=== PATIENT | female | born 1945 | race Caucasian/White ===

== ENCOUNTER → 2016-10-23 | Outpatient (CLI) | payer MEDICARE ==
--- NOTE | 2016-10-24 10:00 | MM ---
Reason for exam: screening (asymptomatic). Last mammogram was performed 2 years and 3 months ago. History: Patient is postmenopausal. Physical Findings: A clinical breast exam by your physician is recommended on an annual basis and results should be correlated with mammographic findings. MG 3D Screening Mammo W/Cad Bilateral CC and MLO view(s) were taken. Prior study comparison: July 14, 2014, right breast MG work up mamm w CAD RT. July 10, 2014, bilateral MG screening mammo w CAD. There are scattered fibroglandular densities. No significant changes when compared with prior studies. ASSESSMENT: Negative, BI-RAD 1 RECOMMENDATION: Routine screening mammogram of both breasts in 1 year.
== END | disposition home or self-care (01) ==
LOC: RADMAMWWP 10:13
PROVIDERS: ATTEND Family Medicine
DX: Z12.31 Encounter for screening mammogram for malignant neoplasm of breast (principal)
CPT/HCPCS: 77052; 77063; G0202

== ENCOUNTER → 2017-11-06 | Outpatient (CLI) | payer MEDICARE ==
--- NOTE | 2017-11-06 08:56 | US ---
EXAMINATION TYPE: US abdomen complete DATE OF EXAM: 11/06/2017 COMPARISON: NONE CLINICAL HISTORY: R10.13 DYSPEPSIA. Patient states she has pain after eating EXAM MEASUREMENTS: Liver Length: 14.9 cm Gallbladder Wall: 0.2 cm CBD: 1.0 cm Spleen: 8.0 cm Right Kidney: 10.5 x 4.1 x 4.3 cm Left Kidney: 10.9 x 4.8 x 4.8 cm Pancreas: Tail obscured by overlying bowel gas, visualized portions wnl Liver: wnl Gallbladder: Mobile echogenic foci visualized Evidence for sonographic Tao's sign: No CBD: Dilated. Spleen: wnl Right Kidney: No hydronephrosis or masses seen Left Kidney: No hydronephrosis or masses seen Upper IVC: wnl Abd Aorta: Some atherosclerotic changes visualized The liver is homogenous. The intrahepatic portion of the IVC is within normal limits. The visualize d portions of the pancreas are homogenous. The spleen is unremarkable. Kidneys are symmetric and fr ee of hydronephrosis. No renal lesions are seen. IMPRESSION: 1. Cholelithiasis with common bile duct dilatation. No wall thickening or pericholecystic fluid.
== END | disposition home or self-care (01) ==
LOC: RADUSWWP 08:13
PROVIDERS: ATTEND Internal Medicine
DX: K80.20 Calculus of gallbladder without cholecystitis without obstruction (principal); K83.8 Other specified diseases of biliary tract; R10.13 Epigastric pain
CPT/HCPCS: 76700

== ENCOUNTER → 2017-12-26 | Outpatient (CLI) | payer MEDICARE ==
[2017-12-26 12:04] LABS: HGB 14.8 gm/dL (11.4-16.0); MCH 30.1 pg (25.0-35.0); MCV 91.3 fL (80.0-100.0); Mean Platelet Volume 7.1; Platelet Count 344 k/uL (150-450); RBC 4.93 m/uL (3.80-5.40); RDW 12.2 % (11.5-15.5)
[2017-12-26 12:06] LABS: ALT 29 U/L (9-52); AST 23 U/L (14-36); Albumin 4.3 g/dL (3.5-5.0); Alkaline Phosphatase 70 U/L (38-126); Amylase 59 U/L (30-110); Anion Gap 9 mmol/L; Blood Urea Nitrogen 16 mg/dL (7-17); Calcium 10.3 mg/dL (8.4-10.2); Carbon Dioxide 29 mmol/L (22-30); Chloride 103 mmol/L (98-107); Glucose 99 mg/dL (74-99); Potassium 5.4 mmol/L (3.5-5.1); Sodium 141 mmol/L (137-145); Total Bilirubin 0.4 mg/dL (0.2-1.3); Total Protein 7.9 g/dL (6.3-8.2)
--- NOTE | 2017-12-26 16:21 | CT ---
EXAMINATION TYPE: CT abdomen w con DATE OF EXAM: 12/26/2017 COMPARISON: NONE INDICATION: Abdominal pain, Dilated common bile duct DLP: 782 mGycm, Automated exposure control for dose reduction was used. CONTRAST: 100 ml mL of Omnipaque 300. Study performed with Oral Contrast TECHNIQUE: Axial images were obtained from above the diaphragm to the pubic rami in the axial plane a t 5 mm thick sections. Reconstructed images are reviewed on the computer in the coronal plane. FINDINGS: Limited CT sections are obtained the lung bases. There is a tiny pleural thickening on the initial i mage posterior right lung measuring 0.4 cm. Series [address] ABDOMEN: Liver: Normal. No biliary dilatation is evident. The common bile duct at the level of the head of the pancreas measures 0.8 cm on this examination which is within normal limits. Spleen: Normal Pancreas: Normal. No head of the pancreas mass is evident. There is prominence of the pancreatic duct within head of the pancreas measuring 0.4 cm. Normal less than 0.3 cm. Pancreatic duct the body and tail of pancreas is within normal limits. Consider ERCP for additional evaluation. Adrenal glands: Left adrenal gland has some thickening of the limbs estimated at approximately 0.8 cm each. The right adrenal gland appears normal. Gallbladder: Normal Kidneys: No masses are evident. There is mild prominence of the extra renal pelvis bilaterally. No cy sts are present. Delayed images were obtained through the kidneys, which remain unremarkable. Aorta: Vascular calcification is within the aorta. Inferior vena cava: Normal. Loops of bowel visualized within the abdomen with contrast appear normal. There are some loops of bow el lacking oral contrast limiting their evaluation. IMPRESSIONS: 1. Pancreatic duct is somewhat prominent at 0.4 cm within the head of the pancreas. Body and tail of pancreas is poorly pancreatic duct is normal. 2. Common bile duct at the head of the pancreas appears within normal limits and is not as dilated as on the previous examination. No intrahepatic biliary dilatation is evident.
== END | disposition home or self-care (01) ==
LOC: RADCTMAIN 11:15
PROVIDERS: ATTEND Surgery
DX: R10.11 Right upper quadrant pain (principal); K83.8 Other specified diseases of biliary tract
CPT/HCPCS: 80053; 82150; 85027; 74160; 36415; Q9967

== ENCOUNTER 2018-04-10 06:55 | Day surgery (SDC) | payer MEDICARE ==
[2018-04-05 09:10] VITALS: BMI 23.1
[2018-04-10] MEDS ORDERED: LIDOCAINE 1% INJ 10MG/ML (20 ML MDV) ONE (10:13)
[2018-04-10] MEDS ORDERED: PROPOFOL 10 MG/ML 20 ML VIAL IV ONE (10:13)
[2018-04-10] MEDS ORDERED: LACTATED RINGERS 1,000 ML IV ONE (10:37)
[2018-04-10 10:41] VITALS: RESP 18
[2018-04-10 10:59] VITALS: BP 103/65; PULSE 69
[2018-04-10] MEDS ORDERED: LACTATED RINGERS 1,000 ML IV SCH (11:13)
--- NOTE | 2018-04-10 14:15 | PCN ---
PROCEDURE NOTE DATE OF SERVICE: April 10, 2018 PREOPERATIVE DIAGNOSIS: Screening. POSTOP DIAGNOSIS: Normal exam. PROCEDURE: Colonoscopy. ANESTHESIA: Sedation. SURGEON: Dr. Amaral. COMPLICATIONS: None. OPERATIVE PROCEDURE: The patient was brought and placed on the operative table and place in the left decubitus position. The patient is sedated per Anesthesia at that time. The Olympus colonoscope was inserted into the anus and passed under direct visualization to the region of the base of the cecum. From that point the scope was slowly withdrawn, inspecting all surfaces carefully. There were no neoplastic, inflammatory or palpable lesions seen throughout the cecum, ascending, transverse, descending, sigmoid, and rectum. There was no visible diverticulosis present. Digital rectal examination was normal. PLAN: 1. Increase fiber. 2. Follow up colonoscopy in 10 years. MMODL / IJN: [id number] /
== END 2018-04-10 11:28 | disposition home or self-care (01) ==
LOC: ORWHC2ENDO 06:55
PROVIDERS: ATTEND Surgery
DX: Z12.11 Encounter for screening for malignant neoplasm of colon (principal); I10 Essential (primary) hypertension; I83.90 Asymptomatic varicose veins of unspecified lower extremity; Z79.82 Long term (current) use of aspirin; Z79.899 Other long term (current) drug therapy
CPT/HCPCS: J2001; J2704; G0121; 45378

== ENCOUNTER → 2019-05-29 | Outpatient (CLI) | payer MEDICARE ==
--- NOTE | 2019-05-30 10:00 | MM ---
Reason for exam: screening (asymptomatic). Last mammogram was performed 2 years and 7 months ago. History: Patient is postmenopausal. Physical Findings: A clinical breast exam by your physician is recommended on an annual basis and results should be correlated with mammographic findings. MG 3D Screening Mammo W/Cad Bilateral CC and MLO view(s) were taken. Prior study comparison: October 23, 2016, bilateral MG 3d screening mammo w/cad. July 14, 2014, right breast MG work up mamm w CAD RT. There are scattered fibroglandular densities. No suspicious abnormality. No significant changes when compared with prior studies. ASSESSMENT: Negative, BI-RAD 1 RECOMMENDATION: Routine screening mammogram of both breasts in 1 year.
== END | disposition home or self-care (01) ==
LOC: RADMAMWWP 13:18
PROVIDERS: ATTEND Internal Medicine
DX: Z12.31 Encounter for screening mammogram for malignant neoplasm of breast (principal)
CPT/HCPCS: 77063; 77067

== ENCOUNTER → 2021-06-30 | Outpatient (CLI) | payer MEDICARE ==
--- NOTE | 2021-07-01 11:37 | MM ---
Reason for exam: screening (asymptomatic). Last mammogram was performed 2 years and 1 month ago. History: Patient is postmenopausal. Physical Findings: A clinical breast exam by your physician is recommended on an annual basis and results should be correlated with mammographic findings. MG 3D Screening Mammo W/Cad Bilateral CC and MLO view(s) were taken. Prior study comparison: May 29, 2019, bilateral MG 3d screening mammo w/cad. October 23, 2016, bilateral MG 3d screening mammo w/cad. There are scattered fibroglandular densities. Benign appearing bilateral calcifications. No significant changes when compared with prior studies. ASSESSMENT: Benign, BI-RAD 2 RECOMMENDATION: Routine screening mammogram of both breasts in 1 year.
== END | disposition home or self-care (01) ==
LOC: RADMAMWWP 08:39
PROVIDERS: ATTEND Internal Medicine
DX: Z12.31 Encounter for screening mammogram for malignant neoplasm of breast (principal); Z78.0 Asymptomatic menopausal state
CPT/HCPCS: 77063; 77067

== ENCOUNTER → 2023-05-31 | Outpatient (CLI) | payer MEDICARE ==
--- NOTE | 2023-06-01 10:12 | BD ---
EXAMINATION TYPE: Axial Bone Density DATE OF EXAM: 05/31/2023 CLINICAL HISTORY: 77 years old Female. ICD-10 CODE: M85.851 DISORDER BONE DENSITY Height: 63 Weight: 124 FRAX RISK QUESTIONS: Family History (Parent hip fracture): yes, mother at 89 History of Fracture in Adulthood: no Secondary Osteoporosis: no Rheumatoid Arthritis: no RISK FACTORS HISTORY OF: Family History of Osteoporosis: no Active: yes Diet low in dairy products/other sources of calcium: no Postmenopausal woman: yes Lost more than 2 inches in height since high school: yes ,was 66 Frequent falls: no Poor Health: no MEDICATIONS: Additional Medications: yes diabetic meds, hbp meds, vit d , calcium EXAM MEASUREMENTS: Bone mineral densitometry was performed using the Velti System. Bone mineral density as measured about the Lumbar spine is: ----- L1-L4(G/cm2): 0.925 T Score Values are as follows: ----- L1: -2.8 ----- L2: -2.7 ----- L3: -1.5 ----- L4: -1.6 ----- L1-L4: -2.1 Z Score Values are as follows: ----- L1: -0.8 ----- L2: -0.6 ----- L3: 0.5 ----- L4: 0.4 ----- L1-L4: -0.1 Bone mineral density baseline Bone mineral density about the R hip (g/cm2): 0.694 Bone mineral density about the L hip (g/cm2): 0.713 T Score values are as follows: -----R Neck: -2.4 -----L Neck: -2.4 -----R Total: -2.5 -----L Total: -2.3 Z Score values are as follows: -----R Neck: -0.2 -----L Neck: -0.2 -----R Total: -0.5 -----L Total: -0.3 Bone mineral density baseline FRAX%s: The graph provided illustrates a 16% chance for a major osteoporotic fx and a 5.3% chance for the hips probability for fx in 10 years time. IMPRESSION: Osteopenia (T Score between -2.5 and -1). There is slightly increased risk of fracture and the patient may be considered for treatment. Re-Screen 2-5 years. NOTE: T-SCORE=SD OF THE YOUNG ADULT MEAN.
--- NOTE | 2023-06-01 11:01 | MM ---
Reason for Exam: Screening (asymptomatic). Last mammogram was performed 1 year(s) and 11 month(s) ago. Patient History: Menarche at age 17. First Full-Term at age 24. Postmenopausal. Hormonal Contraceptives for 6 months. Risk Values: Geraldine 5 year model risk: 1.4%. NCI Lifetime model risk: 2.9%. Prior Study Comparison: 10/23/2016 Bilateral Screening Mammogram, [facility]. 05/29/2019 Bilateral Screening Mammogram, [facility]. 06/30/2021 Bilateral Screening Mammogram, [facility]. Tissue Density: There are scattered fibroglandular densities. Findings: Analyzed By CAD. Pattern appears symmetrical and stable. No significant interval changes. No suspicious groups of microcalcifications, spiculated or lobular masses, architectural distortion or other secondary signs of malignancy are mammographically apparent. Overall Assessment: Benign, BI-RAD 2 Management: Screening Mammogram of both breasts in 1 year. A negative mammogram report should not preclude additional follow up of suspicious palpable abnormalities. Patient should continue monthly self breast exam. A clinical breast exam by your physician is recommended on an annual basis and results should be correlated with mammographic findings. Electronically signed and approved by: Jung Garza D.O. Radiologis
== END | disposition home or self-care (01) ==
LOC: RADMAMWWP 14:33
PROVIDERS: ATTEND Internal Medicine
DX: Z12.31 Encounter for screening mammogram for malignant neoplasm of breast (principal); M81.0 Age-related osteoporosis without current pathological fracture; M85.89 Other specified disorders of bone density and structure, multiple sites; Z78.0 Asymptomatic menopausal state
CPT/HCPCS: 77063; 77067; 77080

== ENCOUNTER → 2023-09-04 | Outpatient (CLI) | payer MEDICARE ==
[2023-09-04 11:31] LABS: Partial Thromboplastin Time 25.6 sec (22.0-30.0); Prothrombin Time 10.8 sec (10.0-12.5)
[2023-09-04 18:13] LABS: Basophils # (A) 0.04 X 10*3/uL (0.00-0.10); Basophils % (A) 0.7 %; Eosinophils # (A) 0.04 X 10*3/uL (0.04-0.35); Eosinophils % (A) 0.7 %; HCT 43.6 % (37.2-46.3); HGB 13.9 g/dL (12.0-15.0); Lymphocytes # (A) 1.06 X 10*3/uL (0.90-5.00); Lymphocytes % (A) 19.8 %; MCH 30.5 pg (27.0-32.0); MCHC 31.9 g/dL (32.0-37.0); MCV 95.8 FL (80.0-97.0); Mean Platelet Volume 11.2 FL (9.5-12.2); Monocytes # (A) 0.36 X 10*3/uL (0.20-1.00); Monocytes % (A) 6.7 %; NRBC Per 100 WBC 0 X 10*3/uL (0.00-0.01); Neutrophils # (A) 3.83 X 10*3/uL (1.80-7.70); Neutrophils % (A) 71.7 %; Platelet Count 264 X 10*3/uL (140-440); RBC 4.55 X 10*6/uL (4.10-5.20); RDW 12.7 % (11.5-14.5); WBC 5.35 X 10*3/uL (4.50-10.00)
[2023-09-04 18:24] LABS: Appearance,Urine Clear (Clear); Bilirubin,Urine Negative (Negative); Blood,Urine Negative (Negative); Color,Urine Yellow (Yellow); Ketones,Urine Negative (Negative); Nitrite,Urine Negative (Negative); PH, Urine 6.5; Specific Gravity,Urine 1.014 (1.001-1.030); Urobilinogen,Urine 0.2 E.U./DL
[2023-09-04 18:28] LABS: Bacteria,Urine None Seen (None Seen)
[2023-09-04 21:05] LABS: Blood Urea Nitrogen 16.4 mg/dL (9.0-27.0); Carbon Dioxide 23.9 mmol/L (21.6-31.8); Chloride 101 mmol/L (96-109); Glucose 94 mg/dL (70-110); Potassium 4.8 mmol/L (3.5-5.5); Sodium 136 mmol/L (135-145)
== END | disposition home or self-care (01) ==
LOC: LABPAT 09:55
PROVIDERS: ATTEND Thoracic Surgery (Cardiothoracic Vascular Surgery)
DX: Z01.812 Encounter for preprocedural laboratory examination (principal); C34.2 Malignant neoplasm of middle lobe, bronchus or lung; E86.0 Dehydration; Z79.899 Other long term (current) drug therapy; R58 Hemorrhage, not elsewhere classified; R06.00 Dyspnea, unspecified
CPT/HCPCS: 80051; 81001; 82565; 82947; 84520; 85025; 85610; 85730; 86850; 86900; 86901; 87086; 93005

== ENCOUNTER 2023-09-13 05:35 | Inpatient (IN) | payer MEDICARE ==
[2023-09-10 09:57] VITALS: BMI 21.8
[2023-09-13] MEDS ORDERED: LACTATED RINGERS 1,000 ML IV SCH (06:01)
[2023-09-13] MEDS ORDERED: ONDANSETRON 4 MG/2 ML VIAL IVP ONE (06:01)
[2023-09-13] MEDS ORDERED: ONDANSETRON 4 MG/2 ML VIAL ONE (06:04)
[2023-09-13 06:33] LABS: Glucose,Whole Blood 93 mg/dL (70-110)
[2023-09-13] MEDS ORDERED: HYDROmorphone 0.5 MG/0.5 ML SYRINGE IVP PRN (07:00)
[2023-09-13] MEDS ORDERED: MIDAZOLAM 2 MG/2 ML VIAL IVP ONE ×2 (07:05→07:08)
[2023-09-13] MEDS ORDERED: DEXAMETHASONE SOD PHOSPHATE 4 MG/ML 1 ML VIAL IVP ONE (07:08)
[2023-09-13] MEDS ORDERED: fentaNYL (PF) 50 MCG/ML 2 ML AMP ONE (07:35)
[2023-09-13] MEDS ORDERED: diphenhydrAMINE 50 MG/ML 1 ML VIAL ONE (07:35)
[2023-09-13] MEDS ORDERED: LABETALOL 5 MG/ML VIAL MDV ONE (07:35)
[2023-09-13] MEDS ORDERED: ROCURONIUM 10 MG/ML (5 ML VIAL) IV ONE (07:35)
[2023-09-13] MEDS ORDERED: HYDROmorphone (PF) 1 MG/ML ONE (07:35)
[2023-09-13] MEDS ORDERED: SUCCINYLCHOLINE CHLORIDE 200 MG/10 ML VIAL IV ONE (07:35)
[2023-09-13] MEDS ORDERED: GLYCOPYRROLATE 0.2 MG/ML 2 ML VIAL ONE (07:35)
[2023-09-13] MEDS ORDERED: NEOSTIGMINE 1 MG/ML 10 ML VIAL ONE (07:35)
[2023-09-13] MEDS ORDERED: LIDOCAINE 1% INJ 10MG/ML (20 ML MDV) ONE (07:35)
[2023-09-13] MEDS ORDERED: ePHEDrine 50 MG/ML 1 ML VIAL ONE (07:35)
[2023-09-13] MEDS ORDERED: PROPOFOL 10 MG/ML 20 ML VIAL IV ONE (07:35)
[2023-09-13] MEDS ORDERED: KETOROLAC 15 MG/ML 1 ML VIAL ONE (07:35)
[2023-09-13] MEDS ORDERED: ROPIVACAINE 5 MG/ML 30 ML VIAL ONE (07:35)
[2023-09-13] MEDS ORDERED: SODIUM CHLORIDE 0.9% (PF) 10 ML VIAL ONE (07:35)
[2023-09-13] MEDS ORDERED: DEXAMETHASONE SOD PHOSPHATE 4 MG/ML 1 ML VIAL ONE (07:35)
[2023-09-13] MEDS ORDERED: BUPIVACAINE (PF) 0.5% 30 ML VIAL SQ ONE ×2 (08:07)
[2023-09-13] MEDS ORDERED: LACTATED RINGERS 1,000 ML IV ONE (10:49)
--- NOTE | 2023-09-13 12:16 | P.OP ---
Date of Procedure: 09/13/23 Preoperative Diagnosis: Well-differentiated neuroendocrine tumor right middle lobe Postoperative Diagnosis: Same Procedure(s) Performed: Robotic-assisted thoracoscopic right middle lobectomy with mediastinal lymph node sampling Anesthesia: ARLENE Surgeon: Rubio Youngblood [employer] Sticker #1: Jovani Masters Estimated Blood Loss (ml): 20 IV fluids (ml): 1,000 Urine output (ml): 500 Pathology: other (Right middle lobe with bronchial margin for frozen section; lymph node stations R4, level 7, R8, R9, R10, R 11, R12; new right middle lobe bronchus margin for frozen section) Condition: stable Disposition: PACU Indications for Procedure: 78-year-old woman with newly discovered mass in the right lung found to be a neuro endocrine well-differentiated tumor by bronchoscopic biopsy. PET scan showed mild uptake in the tumor with no evidence of uptake or metastasis elsewhere. Computed tomography scan showed no evidence of lymphadenopathy. EBUS showed no evidence of lymph node metastasis. Patient was seen in co nsultation in the office and elective surgery was scheduled. A minimally invasive approach was agreed upon. Operative Findings: Fissures were incomplete. Lymph nodes were generally small and anthracotic. Tumor was fairly proximal. Initial frozen section showed "tumor in the lumen "which was interpreted as being a positive margin. Description of Procedure: Patient was brought to the operating room, placed supine on the operating table, anesthetized and intubated. Double lumen endotracheal tube was placed and positioned with bronchoscopic guidance. Tube was secured and the patient was turned in the left lateral decubitus position and the right chest was sterilely prepped and draped after appropriate positioning for robotic lobectomy. Single lung ventilation was initiated. Initial port was placed in the eighth interspace in the midaxillary line and a thoracoscope was placed. After confirming placement in the pleural cavity, CO2 insufflation was begun. 212 mm ports were placed one anterior one posterior to the initial placed port. A second 8 mm port was placed posteriorly in the sixth interspace. A 15 mm working port was placed at the level of the diaphragm between the 2 anteriormost ports. Ports were connected to the robot. The chest was explored. There were some adhesions anteriorly of the middle lobe to the mediastinal fat and these were taken down with electrocautery. The greater fissure was about three quarters complete and further dissection was carried down until we reached lung tissue in order to maximize the dissection of the greater fissure. The lesser fissure was much less well-developed although we could see its demarcation. Only minimal dissection was performed here at this time. Inferior pulmonary ligament was taken down to the inferior pulmonary vein. R9 lymph node was resected. Dissection was carried posteriorly. R8 and subcarinal lymph nodes were resected. We then moved anteriorly and identified the middle lobe vein. This was encircled and ligated and divided with a robotic vascular stapler. Dissection was carried up onto the bronchus. Some R 11 lymph nodes were resected. Became evident that there was a second much smaller branch of the middle lobe vein draining separately and this was encircled and ligated and divided with a robotic vascular stapler. We're now able to better expose the bifurcation of the bronchus intermedius and encircle the middle lobe bronchus. Further R 11 lymph nodes were resected in this process. Middle lobe bronchus was divided with a robotic green stapler. We now had good visualization of the pulmonary artery. Dissection was carried further onto the pulmonary artery and the middle lobe branch of the pulmonary artery was identified and encircled. It was ligated and divided with a robotic vascular stapler. We now carefully dissected anterior to the pulmonary artery up into the fissure near the trifurcation between the greater and lesser fissures. Once we had accomplished this we were able to complete the greater fissure with a single firing of a blue robotic stapler. Multiple firings of the blue robotic stapler were used to complete the lesser fissure. The middle lobe was now 3 and placed in a Endo Catch bag and brought out onto the field. Presence of the tumor was noted near the hilum there was no gross evidence of tumor at or near the bronchus. Specimen was sent down for frozen section of the bronchial margin. In the interim we proceeded to resect R 10 and R4 lymph nodes. The chest was now irrigated with warm water and tested for air leak and none was apparent. The robot was undocked and a 28-Luxembourger chest tube was placed posterior apically and the lung reexpanded under thoracoscopic visualization. Chest tube was secured with 0 Ethibond suture. Rib blocks were performed at the level of the incisions posteriorly with half percent Marcaine. Incisions were closed with Vicryl suture. At this point the frozen section returned stating "tumor in the lumen." This was interpreted as being a positive margin. We reopened the incisions, replaced the ports, redocked the robot. We able to re-resect the stump of the middle lobe bronchus flush with the bronchus intermedius and sent this off for frozen section. We then again reirrigated replaced our chest tube reexpanded the lung and reclosed as previously. Frozen section returned negative at this time. Drapes were taken down and dressings were applied and the patient was turned supine and was in the process of being extubated when the pathologist called back and stated that he now is not sure there might be a 7 mm component of tumor still at or near the margin. As we had already stapled all the way to the bronchus intermedius we did not feel that this warranted opening the patient and doing a sleeve resection at this time. Patient was extubated and transferred to recovery in stable condition.
--- NOTE | 2023-09-13 13:11 | P.ANPRN ---
Procedure Note - Anesthesia - Nerve Block Performed Right Erector Spinae Single Time Out Performed: Yes (722) Date of Procedure: 09/13/23 Procedure Start Time: Procedure Stop Time: Location of Patient: PreOp Indication: Acute Post-Operative Pain, Requested by Surgeon Specifically requested for management of pain by DrCourt: Rubio Youngblood Sedation Type: Sedate with meaningful contact maintained Preparation: Sterile Prep Position: Sitting Catheter: None Needle Types: Pajunk Needle Gauge: 21 Ultrasound used to visualize needle placement: Yes Ultrasound used to observe medication spread: Yes Injectate: 0.5% Ropivacaine (see comment for volume) (30cc) Blood Aspirated: No Pain Paresthesia on Injection Noted: No Resistance on Injection: Normal Image Stored and Saved: Yes Events: Uneventful and Well Tolerated
[2023-09-13] MEDS ORDERED: METOCLOPRAMIDE 5 MG/ML 2 ML VIAL IVP PRN (13:22)
[2023-09-13] MEDS ORDERED: DEXTROSE 50% SYRINGE 50 ML IVP PRN ×2 (13:22)
[2023-09-13] MEDS ORDERED: ONDANSETRON 4 MG/2 ML VIAL IVP PRN (13:22)
[2023-09-13] MEDS ORDERED: SODIUM CHLORIDE 0.9% 1,000 ML IV SCH (13:22)
[2023-09-13] MEDS ORDERED: bisacodyL 10 MG SUPP RECTAL PRN (13:22)
[2023-09-13] MEDS ORDERED: IPRATROPIUM-ALBUTEROL 3 ML NEB IH PRN (13:22)
--- NOTE | 2023-09-13 13:24 | XR ---
EXAMINATION TYPE: XR chest 1V portable DATE OF EXAM: 09/13/2023 COMPARISON: 08/16/2000 and HISTORY: Post lobectomy TECHNIQUE: Single frontal view of the chest is obtained. FINDINGS: Postsurgical changes are seen with a right-sided chest tube and volume loss compatible wit h reported history of post lobectomy. Less than 5% right apical pneumothorax. Underlying COPD and chr onic interstitial lung disease. Bibasilar atelectasis favored over infiltrate with small left effusio n. Subcutaneous emphysema. Diffuse osteopenia with scoliosis of the spine and degenerative changes. A C joint arthropathy. Atherosclerotic change aorta. Heart size stable. IMPRESSION: 1. Postsurgical changes with less than 5% right apical pneumothorax. 2. Bibasilar atelectasis favored over pneumonia.
[2023-09-13] MEDS: IPRATROPIUM-ALBUTEROL 3 ML NEB IH SCH ×3 (15:25→20:39)
[2023-09-13] MEDS: INSULIN ASPART (NovoLOG) 100 UNIT/ML VIAL SQ SCH ×3 (15:59→21:13)
--- NOTE | 2023-09-13 15:59 | P.CNPUL ---
History of Present Illness Consult date: 09/13/23 Requesting physician: Rubio Youngblood Reason for consult: lung mass, abnormal CXR/CT Chief complaint: Lung mass. History of present illness: Pulmonary consult dated 09/13/2023. 78-year-old female who underwent a robotically assisted thoracoscopic right middle lobectomy with mediastinal lymph node sampling. The patient was recently seen by my partner, and had a lung biopsy, revealing a neuroendocrine tumor involving the right middle lobe. The patient was sent to Dr. Youngblood for further evaluation, and the patient underwent a right middle lobectomy, and had sampling of various lymph node stations including 4R, station 7, 8R, 9R, 10R, 11R, and 12R. The patient is postop day #0. She is resting comfortably in room 361. The patient is on 2 L of oxygen. She is receiving lactated Ringer's at 50 mL an hour. She has a right-sided chest tube, with a leak. The only current laboratory data is a glucose of 93. Chest x-ray shows a small 5% right apical pneumothorax. Review of Systems REVIEW OF SYSTEMS: CONSTITUTIONAL: [Negative.] NEUROLOGIC: [ Negative.] HEENT: [ Negative.] CARDIAC: [Negative.] PULMONARY: Pain at the surgical site. GI: [Negative.] : [Negative.] RHEUMATOLOGIC: [ Negative.] IMMUNOLOGIC: [ Negative.] ENDOCRINE: [Negative. ] DERMATOLOGIC: [Negative.] Past Medical History Past Medical History: Diabetes Mellitus, Deep Vein Thrombosis (DVT), Hearing Disorder / Deafness, Hypertension Additional Past Medical History / Comment(s): Borderline Diabetes, Hx DVT postp artum, varicose veins, Meniere's History of Any Multi-Drug Resistant Organisms: None Reported Past Surgical History: Tubal Ligation Additional Past Surgical History / Comment(s): Bilateral cataract surgery Past Anesthesia/Blood Transfusion Reactions: Motion Sickness, Postoperative Nausea & Vomiting (PONV) Additional Past Anesthesia/Blood Transfusion Reaction / Comment(s): Got nausea before cataract surgery was even started, states needs to be pre-medicated for nausea. Past Psychological History: No Psychological Hx Reported Smoking Status: Never smoker Past Alcohol Use History: Rare Past Drug Use History: None Reported - Past Family History Father Family Medical History: Cancer Additional Family Medical History / Comment(s): PROSTATE CANCER. Mother Family Medical History: Deep Vein Thrombosis (DVT) Additional Family Medical History / Comment(s): Triple Bypass. Medications and Allergies Home Medications Medication Instructions Recorded Confirmed Type Ascorbic Acid [Vitamin C] 1,000 mg PO DAILY 04/05/18 09/13/23 History Aspirin [Adult Low Dose Aspirin EC] 81 mg PO DAILY 04/05/18 09/13/23 History Multivit with Calcium,Iron,Min 1 each PO DAILY 04/05/18 09/13/23 History [Women's Multivitamin] Perindopril Erbumine [Aceon] 4 mg PO HS 04/05/18 09/13/23 History Rosuvastatin [Crestor] 10 mg PO W/SUPPER 08/14/23 09/13/23 History metFORMIN HCL [Glucophage] 500 mg PO W/SUPPER 08/14/23 09/13/23 History Cholecalciferol [Vitamin D3 (25 25 mcg PO DAILY 09/10/23 09/13/23 History Mcg = 1000 Iu)] Cinnamon Bark [Cinnamon] 500 mg PO DAILY 09/10/23 09/13/23 History Allergies Allergy/AdvReac Type Severity Reaction Status Date / Time sulfamethoxazole Allergy Severe Rash/Hives Verified 09/13/23 06:12 [From Bactrim] trimethoprim [From Bactrim] Allergy Severe Rash/Hives Verified 09/13/23 06:12 bee venom protein (honey bee) Allergy Swelling Verified 09/13/23 06:12 adhesive AdvReac Unknown BANDAIDES Verified 09/13/23 06:12 IRRITATE SKIN Physical Exam Osteopathic Statement: *. No significant issues noted on an osteopathic structural exam other than those noted in the History and Physical/Consult. Vitals: Vital Signs Temp Pulse Pulse Resp BP BP Pulse Ox 09/13/23 14:16 79 16 151/72 97 09/13/23 14:00 69 16 155/73 97 09/13/23 13:45 67 16 152/72 97 09/13/23 13:30 67 16 151/71 97 09/13/23 13:15 71 16 167/76 153/72 97 09/13/23 13:00 76 14 174/75 165/74 95 09/13/23 12:45 76 14 180/76 166/82 95 09/13/23 12:30 77 14 162/56 149/72 95 09/13/23 12:25 97 F L 70 14 165/76 95 09/13/23 07:28 74 16 188/73 96 09/13/23 06:38 97.5 F L 68 16 184/79 100 Intake and Output 09/13/23 09/13/23 09/13/23 06:59 14:59 22:59 Intake Total 2250 Output Total 630 Balance 1620 Intake: IV 2250 Output: Urine 600 Estimated Blood Loss 30 Other: Weight 57 kg No acute distress, oriented 3. Currently on 2 L by nasal cannula. HEENT examination is grossly unremarkable. Mucous membranes are moist. No oral lesions. Neck supple. Full range of motion. No adenopathy thyromegaly or neck vein distention. Cardiovascular examination reveals regular rhythm rate. S1-S2 normal. No S3 or S4. No discernible murmur noted. Heart rate 79 bpm. Lungs reveal diminished bilateral breath sounds. The patient does not take a deep breath. Minimal scattered rhonchi. No wheezes or crackles. Right-sided chest tube is noted. Abdomen soft bowel sounds are heard. No masses or tenderness. Extremities are intact. No cyanosis clubbing or edema. Skin is without rash or lesion. Neurologic examination is brief but nonfocal. Results - Diagnostic Findings Chest x-ray: image reviewed Assessment and Plan Assessment: Postop day #0, status post robotically-assisted right middle lobectomy and mediastinal lymph node dissection. The patient has a prior diagnosis by robotic bronchoscopy, of well-differentiated neuroendocrine tumor. EBUS evaluation was negative. History of diabetes mellitus. History of hyperlipidemia. History of hypertension. Plan: Plan dated 09/13/2023. The patient is seen today in room 361. She's currently on 2 L of oxygen. She's getting lactated Ringer's at 50 mL an hour. She has pain with deep breathing. She does have an incentive spirometer at her bedside. There is an intermittently from the right-sided chest tube. Chest x-ray shows a very tiny right apical pneumothorax. We will continue to follow the patient, make recommendations along the way. Prognosis is guarded. Time with Patient: Greater than 30
[2023-09-13] MEDS: HEPARIN SODIUM,PORCINE 5,000 UNIT/ML 1 ML VIAL SQ SCH ×2 (16:05→23:34)
[2023-09-13] MEDS: traMADol 50 MG TAB PO PRN ×2 (16:06→23:34)
[2023-09-13] MEDS: ATORVASTATIN 20 MG TAB PO SCH (16:06)
[2023-09-13] MEDS: metFORMIN 500 MG TAB PO SCH (16:43)
[2023-09-13 16:47] LABS: Glucose,Whole Blood 126 mg/dL (70-110)
[2023-09-13] MEDS: SENNOSIDES-DOCUSATE SODIUM 1 EACH TAB PO SCH (19:59)
[2023-09-13] MEDS: lisinopriL 10 MG TAB PO SCH (19:59)
[2023-09-13] MEDS: ACETAMINOPHEN TAB 325 MG TAB PO PRN (20:22)
[2023-09-13 21:08] LABS: Glucose,Whole Blood 165 mg/dL (70-110)
[2023-09-14] MEDS: ACETAMINOPHEN TAB 325 MG TAB PO PRN ×2 (02:57→18:53)
[2023-09-14] MEDS ORDERED: MORPHINE SULFATE 2 MG/ML SYRINGE IVP STA (04:01)
[2023-09-14 06:05] LABS: Glucose,Whole Blood 117 mg/dL (70-110)
[2023-09-14] MEDS: INSULIN ASPART (NovoLOG) 100 UNIT/ML VIAL SQ SCH ×4 (06:10→20:50)
[2023-09-14] MEDS ORDERED: KETOROLAC 15 MG/ML 1 ML VIAL IVP SCH (07:15)
[2023-09-14] MEDS: IPRATROPIUM-ALBUTEROL 3 ML NEB IH SCH ×4 (07:59→20:20)
--- NOTE | 2023-09-14 08:25 | XR ---
EXAMINATION TYPE: XR chest 1V DATE OF EXAM: 09/14/2023 6:53 AM CLINICAL INDICATION:Female, 78 years old with history of post lobectomy; [facility] COMPARISON: Chest radiograph from one day prior. TECHNIQUE: XR chest 1V Frontal view of the chest. FINDINGS: Lungs/Pleura: There is no evidence of pleural effusion, focal consolidation, or left pneumothorax. Pulmonary vascularity: Unremarkable. Heart/mediastinum: Cardiomediastinal silhouette is unremarkable. Musculoskeletal: No acute osseous pathology. Other findings: None Lines/Tubes: Right thoracotomy tube is present with small right pneumothorax. IMPRESSION: Right thoracotomy tube with small right pneumothorax. Right basilar atelectasis. The remainder of the exam is unchanged.
[2023-09-14] MEDS ORDERED: NON FORMULARY DRUG (Cinnamon Bark [Cinnamon] 500 MG Capsule) PO SCH (09:00)
[2023-09-14] MEDS: HEPARIN SODIUM,PORCINE 5,000 UNIT/ML 1 ML VIAL SQ SCH ×3 (09:07→23:41)
[2023-09-14] MEDS: ASCORBIC ACID 500 MG TAB PO SCH (09:07)
[2023-09-14] MEDS: ASPIRIN 81 MG PO SCH (09:07)
[2023-09-14] MEDS: CHOLECALCIFEROL 25 MCG (1000 IU) TABLET PO SCH (09:07)
[2023-09-14] MEDS: MULTIVITAMINS, THERA 1 EACH TAB PO SCH (09:07)
[2023-09-14 10:29] LABS: Basophils % (A) 0 %; Eosinophils % (A) 0 %; HCT 35.1 % (34.0-46.0); HGB 11.5 gm/dL (11.4-16.0); Lymphocytes # (A) 0.8 k/uL (1.0-4.8); Lymphocytes % (A) 9 %; MCH 31.6 pg (25.0-35.0); MCHC 32.9 g/dL (31.0-37.0); MCV 96.2 fL (80.0-100.0); Mean Platelet Volume 8.3; Monocytes # (A) 0.4 k/uL (0-1.0); Monocytes % (A) 5 %; Neutrophils # (A) 7.2 k/uL (1.3-7.7); Neutrophils % (A) 85 %; Platelet Count 214 k/uL (150-450); RBC 3.65 m/uL (3.80-5.40); RDW 12.3 % (11.5-15.5); WBC 8.5 k/uL (3.8-10.6)
[2023-09-14 10:44] LABS: African American GFR (CKD) 86 (>60 ml/min/1.73 sqM); Anion Gap 10 mmol/L; Blood Urea Nitrogen 16 mg/dL (7-17); Carbon Dioxide 24 mmol/L (22-30); Chloride 96 mmol/L (98-107); Glucose 126 mg/dL (74-99); Non-African American GFR(CKD) 75 (>60 ml/min/1.73 sqM); Potassium 4.4 mmol/L (3.5-5.1); Sodium 130 mmol/L (137-145)
--- NOTE | 2023-09-14 11:49 | P.PN ---
Subjective Progress Note Date: 09/14/23 Principal diagnosis: Well-differentiated neuroendocrine tumor right middle lobe. History of hypertension, hyperlipidemia, diabetes, remote history of DVT not currently on anticoagulation, varicose veins, Mnire's disease, and lifelong nonsmoker POD #1 robotic assisted thoracoscopic right middle lobectomy with mediastinal lymph node sampling The patient was seen and examined this morning ambulating in her room in no acute distress. States pain is not completely controlled on current medication regimen, denies shortness of breath. Remains in sinus rhythm, hemodynamically stable, currently on room air with oxygen saturation in the mid 90s. Only able to achieve 500 mL on her incentive spirometry due to pain with deep breaths. Right pleural chest tube present to continuous wall suction, small intermittent air leak present with forceful coughing. Chest x-ray, labs reviewed. No new concerns. Objective - Vital Signs Vital signs: Vital Signs Temp 97.2 F L 09/14/23 08:30 Pulse 74 09/14/23 10:48 Resp 16 09/14/23 08:30 BP 105/54 09/14/23 08:30 Pulse Ox 96 09/14/23 08:30 FiO2 Intake & Output 09/13/23 09/14/23 09/14/23 18:59 06:59 18:59 Intake Total 2350 0 120 Output Total 730 135 625 Balance 1620 -135 -505 Weight 65 kg Intake: IV 2250 Intake, IV Titration 100 Amount ceFAZolin 2 gm In Sodium 100 Chloride 0.9% 50 ml @ 100 mls/hr IVPB Q8H [facility] Rx#: [id number] Oral 0 120 Output: Chest Tube Drainage 50 135 Chest Tube Right 50 135 Urine 600 625 Estimated Blood Loss 30 Other 50 Other: Voiding Method Indwelling Catheter Indwelling Catheter Indwelling Catheter # Voids 1 - Exam CONSTITUTIONAL: Appears comfortable, cooperative, no acute distress RESPIRATORY: Lungs sounds clear bilaterally. Respirations even, nonlabored. Currently on room air with oxygen saturation 96%. Able to achieve 500 mL on incentive spirometry. Strong cough. CARDIOVASCULAR: S1, S2 present. Regular rate and rhythm, sinus rhythm on telemetry. Palpable peripheral pulses bilaterally. No edema present. No calf pain or tenderness noted. SCDs present. GASTROINTESTINAL: Abdomen soft, nontender, nondistended. Active bowel sounds present 4 quadrants. Tolerating diet. Positive flatus GENITOURINARY: Alberto was present this morning draining clear, yellow urine INTEGUMENTARY: Skin is warm and dry NEUROLOGIC: Cranial nerves II through XII intact MUSKULOSKELETAL: Able to move all extremities, strength equal bilaterally, gait normal PSYCHIATRIC: Alert and oriented to person place and time, appropriate affect, intact judgment and insight INVASIVE LINES AND TUBES: Right pleural chest tube present and connected to wall suction, intermittent air leak present with forceful coughing, 135 mL serosanguineous drainage overnight, 300 mL since surgery - Allied health notes Allied health notes reviewed: nursing - Labs CBC & Chem 7: 09/14/23 08:56 09/14/23 08:56 Labs: Abnormal Lab Results - Last 24 Hours (Table) 09/13/23 09/13/23 09/14/23 Range/Units 16:43 21:05 06:04 RBC (3.80-5.40) m/uL Lymphocytes # (1.0-4.8) k/uL Sodium (137-145) mmol/L Chloride (98-107) mmol/L Glucose (74-99) mg/dL POC Glucose (mg/dL) 126 H 165 H 117 H (70-110) mg/dL 09/14/23 09/14/23 Range/Units 08:56 08:56 RBC 3.65 L (3.80-5.40) m/uL Lymphocytes # 0.8 L (1.0-4.8) k/uL Sodium 130 L (137-145) mmol/L Chloride 96 L (98-107) mmol/L Glucose 126 H (74-99) mg/dL POC Glucose (mg/dL) (70-110) mg/dL - Imaging and Cardiology Chest x-ray: report reviewed, image reviewed Assessment and Plan Assessment: Well-differentiated neuroendocrine tumor right middle lobe, status post robotic assisted thoracoscopic right middle lobectomy with mediastinal lymph node sampling History of hypertension History of hyperlipidemia Diabetes Remote history of DVT not currently on anticoagulation Varicose veins Mnire's disease Lifelong nonsmoker Plan: Chest tube placed to waterseal, monitor for air leak resolution Continue current medication regimen Continue current pain medication regimen, Toradol added for better control Will monitor daily labs and x-rays. Pathology pending Increase activity as tolerated Encourage incentive spirometry use Bronchodilators per pulmonology Hep lock IV Discontinue Alberto catheter. May bladder scan and straight cath for greater than 300 mL residual More recommendations to follow
--- NOTE | 2023-09-14 13:57 | P.PN ---
Subjective Progress Note Date: 09/14/23 Principal diagnosis: Status post right middle lobectomy. Pulmonary consult dated 09/13/2023. 78-year-old female who underwent a robotically assisted thoracoscopic right middle lobectomy with mediastinal lymph node sampling. The patient was recently seen by my partner, and had a lung biopsy, revealing a neuroendocrine tumor involving the right middle lobe. The patient was sent to Dr. Youngblood for further evaluation, and the patient underwent a right middle lobectomy, and had sampling of various lymph node stations including 4R, station 7, 8R, 9R, 10R, 11R, and 12R. The patient is postop day #0. She is resting comfortably in room 361. The patient is on 2 L of oxygen. She is receiving lactated Ringer's at 50 mL an hour. She has a right-sided chest tube, with a leak. The only current laboratory data is a glucose of 93. Chest x-ray shows a small 5% right apical p neumothorax. Progress note dated 09/14/2023. 78-year-old female seen yesterday in consultation. She is postop day #1, status post robotically assisted thoracoscopic right middle lobectomy with mediastinal lymph node sampling. The patient is currently on room air. The patient is not receiving any IV fluids. She does have a small leak from the chest tube. Currently, she's feeling better today than she did yesterday. She still has pain with deep breathing. Labs today include a white count 8.5, hemoglobin 11.5, hematocrit 35.1, and platelet count of 214,000. Sodium 1:30, potassium 4.4, chlorides A6, CO2 24, BUN 16, creatinine 0.77. Glucose 126. Calcium is 9. Chest x-ray today shows right thoracotomy tube with small right pneumothorax. Objective - Vital Signs Vital signs: Vital Signs Temp 97.9 F 09/14/23 12:00 Pulse 71 09/14/23 12:00 Resp 16 09/14/23 12:00 BP 146/68 09/14/23 12:00 Pulse Ox 97 09/14/23 12:00 FiO2 Intake & Output 09/13/23 09/14/23 09/14/23 18:59 06:59 18:59 Intake Total 2350 0 120 Output Total 730 135 775 Balance 1620 -135 -655 Weight 65 kg Intake: IV 2250 Intake, IV Titration 100 Amount ceFAZolin 2 gm In Sodium 100 Chloride 0.9% 50 ml @ 100 mls/hr IVPB Q8H [facility] Rx#: [id number] Oral 0 120 Output: Chest Tube Drainage 50 135 Chest Tube Right 50 135 Urine 600 775 Uretheral (Alberto) 150 Estimated Blood Loss 30 Other 50 Other: Voiding Method Indwelling Catheter Indwelling Catheter Indwelling Catheter # Voids 1 - Exam No acute distress, oriented 3. Currently on room air. HEENT examination is grossly unremarkable. Mucous membranes are moist. No oral lesions. Neck supple. Full range of motion. No adenopathy thyromegaly or neck vein distention. Cardiovascular examination reveals regular rhythm rate. S1-S2 normal. No S3 or S4. No discernible murmur noted. Heart rate 71 bpm. Lungs reveal diminished bilateral breath sounds. The patient does not take a deep breath. Minimal scattered rhonchi. No wheezes or crackles. Right-sided chest tube is noted. Abdomen soft bowel sounds are heard. No masses or tenderness. Extremities are intact. No cyanosis clubbing or edema. Skin is without rash or lesion. Neurologic examination is brief but nonfocal. - Labs CBC & Chem 7: 09/14/23 08:56 09/14/23 08:56 Labs: Abnormal Lab Results - Last 24 Hours (Table) 09/13/23 09/13/23 09/14/23 Range/Units 16:43 21:05 06:04 RBC (3.80-5.40) m/uL Lymphocytes # (1.0-4.8) k/uL Sodium (137-145) mmol/L Chloride (98-107) mmol/L Glucose (74-99) mg/dL POC Glucose (mg/dL) 126 H 165 H 117 H (70-110) mg/dL 09/14/23 09/14/23 Range/Units 08:56 08:56 RBC 3.65 L (3.80-5.40) m/uL Lymphocytes # 0.8 L (1.0-4.8) k/uL Sodium 130 L (137-145) mmol/L Chloride 96 L (98-107) mmol/L Glucose 126 H (74-99) mg/dL POC Glucose (mg/dL) (70-110) mg/dL Assessment and Plan Assessment: Postop day #1, status post robotically-assisted right middle lobectomy and mediastinal lymph node dissection. The patient has a prior diagnosis by robotic bronchoscopy, of well-differentiated neuroendocrine tumor. EBUS evaluation was negative. History of diabetes mellitus. History of hyperlipidemia. History of hypertension. Plan: Plan dated 09/13/2023. The patient is seen today in room 361. She's currently on 2 L of oxygen. She's getting lactated Ringer's at 50 mL an hour. She has pain with deep breathing. She does have an incentive spirometer at her bedside. There is an intermittently from the right-sided chest tube. Chest x-ray shows a very tiny right apical pneumothorax. We will continue to follow the patient, make recommendations along the way. Prognosis is guarded. Plan dated 09/14/2023. The patient is seen today in room 361. She is doing much better than she was yesterday. She's not requiring any supplemental oxygen. Chest tube remains in place. There is an intermittent small leak on the right chest tube. The patient not receiving any IV fluids. Labs, x-rays, and medications are all reviewed. The patient's overall prognosis remains good. We will continue to see the patient, and make recommendations along the way. Time with Patient: Less than 30
[2023-09-14] MEDS: KETOROLAC 15 MG/ML 1 ML VIAL IVP SCH ×2 (16:04→23:41)
[2023-09-14] MEDS: metFORMIN 500 MG TAB PO SCH (16:59)
[2023-09-14] MEDS: ATORVASTATIN 20 MG TAB PO SCH (16:59)
[2023-09-14 17:00] LABS: Glucose,Whole Blood 143 mg/dL (70-110)
[2023-09-14 20:00] LABS: Glucose,Whole Blood 126 mg/dL (70-110)
[2023-09-14] MEDS: lisinopriL 10 MG TAB PO SCH (20:05)
[2023-09-14] MEDS: SENNOSIDES-DOCUSATE SODIUM 1 EACH TAB PO SCH (20:51)
[2023-09-15] MEDS: traMADol 50 MG TAB PO PRN ×3 (05:56→17:46)
[2023-09-15 06:19] LABS: Glucose,Whole Blood 111 mg/dL (70-110)
[2023-09-15] MEDS: INSULIN ASPART (NovoLOG) 100 UNIT/ML VIAL SQ SCH ×4 (06:24→20:37)
[2023-09-15] MEDS ORDERED: hydrALAZINE HCL 20 MG/ML 1 ML VIAL IVP PRN (06:52)
--- NOTE | 2023-09-15 08:02 | XR ---
EXAMINATION TYPE: XR chest 2V DATE OF EXAM: 09/15/2023 COMPARISON: 09/14/2023 INDICATION: Post lobectomy TECHNIQUE: Frontal and lateral views of the chest are obtained. FINDINGS: The heart size is normal. The pulmonary vasculature is normal. Infiltrates in the right lung base. Right-sided chest tube is present. There is a right apical pneumo thorax. IMPRESSION: 1. Persistent right apical pneumothorax. Right-sided chest tube remains present. 2. Right lower lobe infiltrate. Correlate for atelectasis
[2023-09-15] MEDS: ASPIRIN 81 MG PO SCH (08:27)
[2023-09-15] MEDS: MULTIVITAMINS, THERA 1 EACH TAB PO SCH (08:27)
[2023-09-15] MEDS: lisinopriL 10 MG TAB PO SCH ×2 (08:27→20:42)
[2023-09-15] MEDS: HEPARIN SODIUM,PORCINE 5,000 UNIT/ML 1 ML VIAL SQ SCH ×3 (08:28→23:12)
[2023-09-15] MEDS: ASCORBIC ACID 500 MG TAB PO SCH (08:28)
[2023-09-15] MEDS: KETOROLAC 15 MG/ML 1 ML VIAL IVP SCH ×3 (08:28→23:12)
[2023-09-15] MEDS: CHOLECALCIFEROL 25 MCG (1000 IU) TABLET PO SCH (08:30)
--- NOTE | 2023-09-15 08:40 | P.PN ---
Subjective Progress Note Date: 09/15/23 Principal diagnosis: Well-differentiated neuroendocrine tumor right middle lobe. History of hypertension, hyperlipidemia, diabetes, remote history of DVT not currently on anticoagulation, varicose veins, Mnire's disease, and lifelong nonsmoker POD #2 robotic assisted thoracoscopic right middle lobectomy with mediastinal lymph node sampling The patient was seen and examined this morning sitting up at the bedside in no acute distress about to eat breakfast. States pain is better controlled although she is taking the maximum doses ordered for her of pain medication, denies shortness of breath. Remains in sinus rhythm, hemodynamically stable, currently on room air with oxygen saturation in the high 90s. Able to achieve 750 mL on her incentive spirometry due to pain with deep breaths. Right pleural chest tube present to waterseal, very small intermittent air leak present with forceful coughing only. Chest x-ray reviewed. No new concerns. Objective - Vital Signs Vital signs: Vital Signs Temp 99.9 F H 09/14/23 20:00 Pulse 81 09/15/23 04:00 Resp 16 09/15/23 04:00 BP 165/77 09/15/23 04:00 Pulse Ox 98 09/15/23 04:00 FiO2 Intake & Output 09/14/23 09/15/23 09/15/23 18:59 06:59 18:59 Intake Total 360 540 Output Total 775 70 Balance -415 470 Weight 58.2 kg Intake: Oral 360 540 Output: Chest Tube Drainage 70 Chest Tube Right 70 Urine 775 Uretheral (Alberto) 150 Other: Voiding Method Indwelling Catheter Toilet # Voids 1 1 - Exam CONSTITUTIONAL: Appears comfortable, cooperative, no acute distress RESPIRATORY: Lungs sounds clear bilaterally. Respirations even, nonlabored. Currently on room air with oxygen saturation 98%. Able to achieve 750 mL on incentive spirometry. Strong cough. CARDIOVASCULAR: S1, S2 present. Regular rate and rhythm, sinus rhythm on telemetry. Palpable peripheral pulses bilaterally. No edema present. No calf pain or tenderness noted. SCDs present. GASTROINTESTINAL: Abdomen soft, nontender, nondistended. Active bowel sounds present 4 quadrants. Tolerating diet. Positive flatus GENITOURINARY: Continues to void INTEGUMENTARY: Skin is warm and dry NEUROLOGIC: Cranial nerves II through XII intact MUSKULOSKELETAL: Able to move all extremities, strength equal bilaterally, gait normal PSYCHIATRIC: Alert and oriented to person place and time, appropriate affect, intact judgment and insight INVASIVE LINES AND TUBES: Right pleural chest tube present to waterseal, small intermittent air leak present with forceful coughing, 70 mL serosanguineous drainage in the last 24 hours - Allied health notes Allied health notes reviewed: nursing - Labs CBC & Chem 7: 09/14/23 08:56 09/14/23 08:56 Labs: Abnormal Lab Results - Last 24 Hours (Table) 09/14/23 09/14/23 09/14/23 Range/Units 08:56 08:56 16:55 RBC 3.65 L (3.80-5.40) m/uL Lymphocytes # 0.8 L (1.0-4.8) k/uL Sodium 130 L (137-145) mmol/L Chloride 96 L (98-107) mmol/L Glucose 126 H (74-99) mg/dL POC Glucose (mg/dL) 143 H (70-110) mg/dL 09/14/23 09/15/23 Range/Units 19:54 06:17 RBC (3.80-5.40) m/uL Lymphocytes # (1.0-4.8) k/uL Sodium (137-145) mmol/L Chloride (98-107) mmol/L Glucose (74-99) mg/dL POC Glucose (mg/dL) 126 H 111 H (70-110) mg/dL - Imaging and Cardiology Chest x-ray: report reviewed, image reviewed Assessment and Plan Assessment: Well-differentiated neuroendocrine tumor right middle lobe, status post robotic assisted thoracoscopic right middle lobectomy with mediastinal lymph node sampling History of hypertension History of hyperlipidemia Diabetes Remote history of DVT not currently on anticoagulation Varicose veins Mnire's disease Lifelong nonsmoker Plan: Continue chest tube placed to waterseal, monitor for air leak resolution Continue current medication regimen Continue current pain medication regimen Will monitor daily labs and x-rays. Pathology pending Increase activity as tolerated Encourage incentive spirometry use Bronchodilators per pulmonology More recommendations to follow
[2023-09-15] MEDS: IPRATROPIUM-ALBUTEROL 3 ML NEB IH SCH ×4 (09:12→20:46)
--- NOTE | 2023-09-15 11:01 | P.PN ---
Subjective Progress Note Date: 09/15/23 Principal diagnosis: Status post right middle lobectomy. Pulmonary consult dated 09/13/2023. 78-year-old female who underwent a robotically assisted thoracoscopic right middle lobectomy with mediastinal lymph node sampling. The patient was recently seen by my partner, and had a lung biopsy, revealing a neuroendocrine tumor involving the right middle lobe. The patient was sent to Dr. Youngblood for further evaluation, and the patient underwent a right middle lobectomy, and had sampling of various lymph node stations including 4R, station 7, 8R, 9R, 10R, 11R, and 12R. The patient is postop day #0. She is resting comfortably in room 361. The patient is on 2 L of oxygen. She is receiving lactated Ringer's at 50 mL an hour. She has a right-sided chest tube, with a leak. The only current laboratory data is a glucose of 93. Chest x-ray shows a small 5% right apical p neumothorax. Progress note dated 09/14/2023. 78-year-old female seen yesterday in consultation. She is postop day #1, status post robotically assisted thoracoscopic right middle lobectomy with mediastinal lymph node sampling. The patient is currently on room air. The patient is not receiving any IV fluids. She does have a small leak from the chest tube. Currently, she's feeling better today than she did yesterday. She still has pain with deep breathing. Labs today include a white count 8.5, hemoglobin 11.5, hematocrit 35.1, and platelet count of 214,000. Sodium 1:30, potassium 4.4, chlorides A6, CO2 24, BUN 16, creatinine 0.77. Glucose 126. Calcium is 9. Chest x-ray today shows right thoracotomy tube with small right pneumothorax. Progress note dated 09/15/2023. 78-year-old female seen in room 361. The patient is postoperative day #2, status post robotically assisted thoracoscopic right middle lobectomy with mediastinal lymph node sampling. The patient's currently on room air. The patient is not receiving any IV fluids. She does have a leak from the right chest tube. Clinically, she's feeling much better. She does have some pain deep breathing, and coughing. In addition, her cough sounds a bit wet. Glucose today is 111. Chest x-ray shows a persistent small right apical pneumothorax. Right chest tube remains. Objective - Vital Signs Vital signs: Vital Signs Temp 98.0 F 09/15/23 08:23 Pulse 80 09/15/23 09:27 Resp 20 09/15/23 08:23 BP 122/66 09/15/23 08:23 Pulse Ox 98 09/15/23 09:15 FiO2 Intake & Output 09/14/23 09/15/23 09/15/23 18:59 06:59 18:59 Intake Total 360 540 Output Total 775 70 0 Balance -415 470 0 Weight 58.2 kg Intake: Oral 360 540 Output: Chest Tube Drainage 70 0 Chest Tube Right 70 0 Urine 775 Uretheral (Alberto) 150 Other: Voiding Method Indwelling Catheter Toilet Toilet # Voids 1 1 1 - Exam No acute distress, oriented 3. Currently on room air. HEENT examination is grossly unremarkable. Mucous membranes are moist. No oral lesions. Neck supple. Full range of motion. No adenopathy thyromegaly or neck vein distention. Cardiovascular examination reveals regular rhythm rate. S1-S2 normal. No S3 or S4. No discernible murmur noted. Heart rate 80 bpm. Lungs reveal diminished bilateral breath sounds. The patient does not take a deep breath. Minimal scattered rhonchi. No wheezes or crackles. Right-sided chest tube is noted. Saturations are 98%. Abdomen soft bowel sounds are heard. No masses or tenderness. Extremities are intact. No cyanosis clubbing or edema. Skin is without rash or lesion. Neurologic examination is brief but nonfocal. - Labs CBC & Chem 7: 09/14/23 08:56 09/14/23 08:56 Labs: Abnormal Lab Results - Last 24 Hours (Table) 09/14/23 09/14/23 09/15/23 Range/Units 16:55 19:54 06:17 POC Glucose (mg/dL) 143 H 126 H 111 H (70-110) mg/dL Assessment and Plan Assessment: Postop day #2, status post robotically-assisted right middle lobectomy and mediastinal lymph node dissection. The patient has a prior diagnosis by robotic bronchoscopy, of well-differentiated neuroendocrine tumor. EBUS evaluation was negative. History of diabetes mellitus. History of hyperlipidemia. History of hypertension. Plan: Plan dated 09/13/2023. The patient is seen today in room 361. She's currently on 2 L of oxygen. She's getting lactated Ringer's at 50 mL an hour. She has pain with deep breathing. She does have an incentive spirometer at her bedside. There is an intermittently from the right-sided chest tube. Chest x-ray shows a very tiny right apical pneumothorax. We will continue to follow the patient, make recommendations along the way. Prognosis is guarded. Plan dated 09/14/2023. The patient is seen today in room 361. She is doing much better than she was yesterday. She's not requiring any supplemental oxygen. Chest tube remains in place. There is an intermittent small leak on the right chest tube. The patient not receiving any IV fluids. Labs, x-rays, and medications are all re viewed. The patient's overall prognosis remains good. We will continue to see the patient, and make recommendations along the way. Plan dated 09/15/2023. The patient is seen today in room 361. The patient's on room air. She's not requiring any IV fluids. She is feeling much better. We encourage her to continue to use the incentive spirometer, every hour, while awake. We also recommend deep breathing, coughing, and clearing of secretions. The chest x-ray shows a persistent small right apical pneumothorax. The patient does have a small leak. We will continue to follow, and make recommendations along the way. Prognosis is guarded. Time with Patient: Less than 30
[2023-09-15 11:07] LABS: HCT 34.7 % (34.0-46.0); HGB 11.1 gm/dL (11.4-16.0); MCH 30.7 pg (25.0-35.0); MCV 95.8 fL (80.0-100.0); Mean Platelet Volume 8.6; Platelet Count 186 k/uL (150-450); RBC 3.62 m/uL (3.80-5.40); RDW 12.6 % (11.5-15.5); WBC 8.5 k/uL (3.8-10.6)
[2023-09-15 11:24] LABS: African American GFR (CKD) >90 (>60 ml/min/1.73 sqM); Anion Gap 10 mmol/L; Blood Urea Nitrogen 17 mg/dL (7-17); Calcium 9.1 mg/dL (8.4-10.2); Carbon Dioxide 21 mmol/L (22-30); Chloride 100 mmol/L (98-107); Glucose 156 mg/dL (74-99); Non-African American GFR(CKD) >90 (>60 ml/min/1.73 sqM); Sodium 131 mmol/L (137-145)
[2023-09-15 11:40] LABS: Glucose,Whole Blood 117 mg/dL (70-110)
[2023-09-15] MEDS: ATORVASTATIN 20 MG TAB PO SCH (16:49)
[2023-09-15] MEDS: ACETAMINOPHEN TAB 325 MG TAB PO PRN (16:49)
[2023-09-15] MEDS: metFORMIN 500 MG TAB PO SCH (16:49)
[2023-09-15 16:52] LABS: Glucose,Whole Blood 153 mg/dL (70-110)
[2023-09-15 19:42] LABS: Glucose,Whole Blood 109 mg/dL (70-110)
[2023-09-15] MEDS: SENNOSIDES-DOCUSATE SODIUM 1 EACH TAB PO SCH (21:22)
[2023-09-16] MEDS: traMADol 50 MG TAB PO PRN ×2 (02:44→10:35)
[2023-09-16 06:12] LABS: Glucose,Whole Blood 107 mg/dL (70-110)
[2023-09-16] MEDS: INSULIN ASPART (NovoLOG) 100 UNIT/ML VIAL SQ SCH ×4 (06:14→19:49)
[2023-09-16] MEDS ORDERED: METOCLOPRAMIDE 5 MG/ML 2 ML VIAL IVP STA (07:54)
--- NOTE | 2023-09-16 07:56 | P.PN ---
Subjective Progress Note Date: 09/16/23 Principal diagnosis: Well-differentiated neuroendocrine tumor right middle lobe. History of hypertension, hyperlipidemia, diabetes, remote history of DVT not currently on anticoagulation, varicose veins, Mnire's disease, and lifelong nonsmoker POD #3 robotic assisted thoracoscopic right middle lobectomy with mediastinal lymph node sampling The patient was seen and examined this morning sitting up in bed in no acute distress about to eat breakfast. States pain is better controlled, denies shortness of breath. Remains in sinus rhythm, hemodynamically stable, currently on room air with oxygen saturation in the high 90s. Able to achieve 750 mL on her incentive spirometry due to pain with deep breaths. Right pleural chest tube present to [facility], no air leak present. Chest x-ray reviewed. No new concerns. Objective - Vital Signs Vital signs: Vital Signs Temp 97.9 F 09/15/23 20:00 Pulse 83 09/16/23 04:00 Resp 20 09/16/23 04:00 BP 150/82 09/16/23 04:00 Pulse Ox 96 09/16/23 04:00 FiO2 Intake & Output 09/15/23 09/16/23 09/16/23 18:59 06:59 18:59 Intake Total 480 540 Output Total 40 10 Balance 440 530 Weight 58.3 kg Intake: Oral 480 540 Output: Chest Tube Drainage 40 10 Chest Tube Right 40 10 Other: Voiding Method Toilet Toilet # Voids 1 1 - Exam CONSTITUTIONAL: Appears comfortable, cooperative, no acute distress RESPIRATORY: Lungs sounds clear bilaterally. Respirations even, nonlabored. Currently on room air with oxygen saturation 96%. Able to achieve 750 mL on incentive spirometry. Strong cough. CARDIOVASCULAR: S1, S2 present. Regular rate and rhythm, sinus rhythm on telemetry. Palpable peripheral pulses bilaterally. No edema present. No calf pain or tenderness noted. SCDs present. GASTROINTESTINAL: Abdomen soft, nontender, nondistended. Active bowel sounds present 4 quadrants. Tolerating diet. Positive flatus, no bowel movement yet GENITOURINARY: Continues to void INTEGUMENTARY: Skin is warm and dry NEUROLOGIC: Cranial nerves II through XII intact MUSKULOSKELETAL: Able to move all extremities, strength equal bilaterally, gait normal PSYCHIATRIC: Alert and oriented to person place and time, appropriate affect, intact judgment and insight INVASIVE LINES AND TUBES: Right pleural chest tube present to waterseal, no air leak present - Allied health notes Allied health notes reviewed: nursing - Labs CBC & Chem 7: 09/15/23 10:08 09/15/23 10:08 Labs: Abnormal Lab Results - Last 24 Hours (Table) 09/15/23 09/15/23 09/15/23 Range/Units 10:08 10:08 11:38 RBC 3.62 L (3.80-5.40) m/uL Hgb 11.1 L (11.4-16.0) gm/dL Sodium 131 L (137-145) mmol/L Carbon Dioxide 21 L (22-30) mmol/L Creatinine 0.49 L (0.52-1.04) mg/dL Glucose 156 H (74-99) mg/dL POC Glucose (mg/dL) 117 H (70-110) mg/dL 09/15/23 Range/Units 16:49 RBC (3.80-5.40) m/uL Hgb (11.4-16.0) gm/dL Sodium (137-145) mmol/L Carbon Dioxide (22-30) mmol/L Creatinine (0.52-1.04) mg/dL Glucose (74-99) mg/dL POC Glucose (mg/dL) 153 H (70-110) mg/dL - Imaging and Cardiology Chest x-ray: image reviewed Assessment and Plan Assessment: Well-differentiated neuroendocrine tumor right middle lobe, status post robotic assisted thoracoscopic right middle lobectomy with mediastinal lymph node sampling History of hypertension History of hyperlipidemia Diabetes Remote history of DVT not currently on anticoagulation Varicose veins Mnire's disease Lifelong nonsmoker Plan: Continue chest tube to water seal Continue current medication regimen Continue current pain medication regimen Will monitor daily labs and x-rays. Pathology pending Increase activity as tolerated Encourage incentive spirometry use Bronchodilators per pulmonology More recommendations to follow
[2023-09-16] MEDS: IPRATROPIUM-ALBUTEROL 3 ML NEB IH SCH ×4 (08:44→20:45)
[2023-09-16] MEDS: KETOROLAC 15 MG/ML 1 ML VIAL IVP SCH ×3 (08:59→23:01)
[2023-09-16] MEDS: CHOLECALCIFEROL 25 MCG (1000 IU) TABLET PO SCH (09:00)
[2023-09-16] MEDS: MULTIVITAMINS, THERA 1 EACH TAB PO SCH (09:00)
[2023-09-16] MEDS: ASCORBIC ACID 500 MG TAB PO SCH (09:00)
[2023-09-16] MEDS ORDERED: SENNOSIDES-DOCUSATE SODIUM 1 EACH TAB PO SCH (09:00)
[2023-09-16] MEDS: ASPIRIN 81 MG PO SCH (09:00)
[2023-09-16] MEDS: HEPARIN SODIUM,PORCINE 5,000 UNIT/ML 1 ML VIAL SQ SCH ×3 (09:00→23:01)
[2023-09-16] MEDS: lisinopriL 10 MG TAB PO SCH ×2 (09:01→20:20)
--- NOTE | 2023-09-16 11:12 | P.PN ---
Subjective Progress Note Date: 09/16/23 Principal diagnosis: Status post right middle lobectomy. Pulmonary consult dated 09/13/2023. 78-year-old female who underwent a robotically assisted thoracoscopic right middle lobectomy with mediastinal lymph node sampling. The patient was recently seen by my partner, and had a lung biopsy, revealing a neuroendocrine tumor involving the right middle lobe. The patient was sent to Dr. Youngblood for further evaluation, and the patient underwent a right middle lobectomy, and had sampling of various lymph node stations including 4R, station 7, 8R, 9R, 10R, 11R, and 12R. The patient is postop day #0. She is resting comfortably in room 361. The patient is on 2 L of oxygen. She is receiving lactated Ringer's at 50 mL an hour. She has a right-sided chest tube, with a leak. The only current laboratory data is a glucose of 93. Chest x-ray shows a small 5% right apical p neumothorax. Progress note dated 09/14/2023. 78-year-old female seen yesterday in consultation. She is postop day #1, status post robotically assisted thoracoscopic right middle lobectomy with mediastinal lymph node sampling. The patient is currently on room air. The patient is not receiving any IV fluids. She does have a small leak from the chest tube. Currently, she's feeling better today than she did yesterday. She still has pain with deep breathing. Labs today include a white count 8.5, hemoglobin 11.5, hematocrit 35.1, and platelet count of 214,000. Sodium 1:30, potassium 4.4, chlorides A6, CO2 24, BUN 16, creatinine 0.77. Glucose 126. Calcium is 9. Chest x-ray today shows right thoracotomy tube with small right pneumothorax. Progress note dated 09/15/2023. 78-year-old female seen in room 361. The patient is postoperative day #2, status post robotically assisted thoracoscopic right middle lobectomy with mediastinal lymph node sampling. The patient's currently on room air. The patient is not receiving any IV fluids. She does have a leak from the right chest tube. Clinically, she's feeling much better. She does have some pain deep breathing, and coughing. In addition, her cough sounds a bit wet. Glucose today is 111. Chest x-ray shows a persistent small right apical pneumothorax. Right chest tube remains. Progress note dated 09/16/2023. 78-year-old female seen in room 361. The patient is postoperative day #3, status post robotically assisted thoracoscopic right middle lobectomy with mediastinal lymph node sampling. The patient's currently on room air. The right chest tube is still in place. The patient is not requiring any supplemental oxygen, or IV fluids. She has no leak from that chest tube. No new labs today. Chest x-ray does not reveal a significant pneumothorax. There is some subcutaneous emphysema. Objective - Vital Signs Vital signs: Vital Signs Temp 97.7 F 09/16/23 08:56 Pulse 80 09/16/23 08:58 Resp 22 09/16/23 08:56 BP 140/66 09/16/23 08:56 Pulse Ox 95 09/16/23 08:56 FiO2 Intake & Output 09/15/23 09/16/23 09/16/23 18:59 06:59 18:59 Intake Total 480 540 Output Total 40 10 25 Balance 440 530 -25 Weight 58.3 kg Intake: Oral 480 540 Output: Chest Tube Drainage 40 10 25 Chest Tube Right 40 10 25 Other: Voiding Method Toilet Toilet Toilet # Voids 1 1 1 - Exam No acute distress, oriented 3. Currently on room air. HEENT examination is grossly unremarkable. Mucous membranes are moist. No oral lesions. Neck supple. Full range of motion. No adenopathy thyromegaly or neck vein distention. Cardiovascular examination reveals regular rhythm rate. S1-S2 normal. No S3 or S4. No discernible murmur noted. Heart rate 91 bpm. Lungs reveal diminished bilateral breath sounds. The patient does not take a deep breath. Minimal scattered rhonchi. No wheezes or crackles. Right-sided chest tube is noted. Saturations are 96 %. Abdomen soft bowel sounds are heard. No masses or tenderness. Extremities are intact. No cyanosis clubbing or edema. Skin is without rash or lesion. Neurologic examination is brief but nonfocal. - Labs CBC & Chem 7: 09/15/23 10:08 09/15/23 10:08 Labs: Abnormal Lab Results - Last 24 Hours (Table) 09/15/23 09/15/23 09/15/23 Range/Units 10:08 11:38 16:49 Sodium 131 L (137-145) mmol/L Carbon Dioxide 21 L (22-30) mmol/L Creatinine 0.49 L (0.52-1.04) mg/dL Glucose 156 H (74-99) mg/dL POC Glucose (mg/dL) 117 H 153 H (70-110) mg/dL Assessment and Plan Assessment: Postop day #3, status post robotically-assisted right middle lobectomy and mediastinal lymph node dissection. The patient has a prior diagnosis by robotic bronchoscopy, of well-differentiated neuroendocrine tumor. EBUS evaluation was negative. History of diabetes mellitus. History of hyperlipidemia. History of hypertension. Plan: Plan dated 09/13/2023. The patient is seen today in room 361. She's currently on 2 L of oxygen. She's getting lactated Ringer's at 50 mL an hour. She has pain with deep breathing. She does have an incentive spirometer at her bedside. There is an intermittently from the right-sided chest tube. Chest x-ray shows a very tiny right apical pneumothorax. We will continue to follow the patient, make recommendations along the way. Prognosis is guarded. Plan dated 09/14/2023. The patient is seen today in room 361. She is doing much better than she was yesterday. She's not requiring any supplemental oxygen. Chest tube remains in place. There is an intermittent small leak on the right chest tube. The patient not receiving any IV fluids. Labs, x-rays, and medications are all reviewed. The patient's overall prognosis remains good. We will continue to see the patient, and make recommendations along the way. Plan dated 09/15/2023. The patient is seen today in room 361. The patient's on room air. She's not requiring any IV fluids. She is feeling much better. We encourage her to continue to use the incentive spirometer, every hour, while awake. We also recommend deep breathing, coughing, and clearing of secretions. The chest x-ray shows a persistent small right apical pneumothorax. The patient does have a small leak. We will continue to follow, and make recommendations along the way. Prognosis is guarded. Plan dated 09/16/2023. The patient is seen in room 361. The patient's on room air. No IV fluids. Yesterday, there was a leak from the right-sided chest tube. Today there is no leak. Chest x-ray, and labs are reviewed. We will continue to follow make recommendations along the way. The patient's prognosis is guarded. Medications are reviewed. Time with Patient: Less than 30
[2023-09-16 11:39] LABS: Glucose,Whole Blood 103 mg/dL (70-110)
[2023-09-16 12:37] LABS: HCT 33.1 % (34.0-46.0); HGB 10.8 gm/dL (11.4-16.0); MCH 31.3 pg (25.0-35.0); MCHC 32.8 g/dL (31.0-37.0); MCV 95.5 fL (80.0-100.0); Mean Platelet Volume 8.8; Platelet Count 185 k/uL (150-450); RBC 3.47 m/uL (3.80-5.40); RDW 12.6 % (11.5-15.5)
[2023-09-16] MEDS ORDERED: MAGNESIUM HYDROXIDE 2,400 MG/30 ML CUP PO PRN (12:52)
[2023-09-16 12:54] LABS: African American GFR (CKD) >90 (>60 ml/min/1.73 sqM); Anion Gap 10 mmol/L; Blood Urea Nitrogen 15 mg/dL (7-17); Calcium 9.3 mg/dL (8.4-10.2); Carbon Dioxide 21 mmol/L (22-30); Chloride 100 mmol/L (98-107); Glucose 94 mg/dL (74-99); Non-African American GFR(CKD) >90 (>60 ml/min/1.73 sqM); Potassium 4.3 mmol/L (3.5-5.1); Sodium 131 mmol/L (137-145)
--- NOTE | 2023-09-16 14:33 | XR ---
EXAMINATION TYPE: XR chest 2V DATE OF EXAM: 09/16/2023 COMPARISON: 09/15/2023 INDICATION: Post lobectomy TECHNIQUE: Single frontal view of the chest is obtained. FINDINGS: The heart size is normal. The pulmonary vasculature is normal. Right-sided chest tube remains present. Patchy infiltrates on the right. There is an air-fluid level at the right hilar region. Small right apical pneumothorax present IMPRESSION: 1. Right apical pneumothorax. 2. Right-sided chest tube stable position. 3. Worsening right lower lobe infiltrate. Correlate for pneumonia. 4. Air-fluid level is in the right infrahilar region has a stable appearance from comparison.
[2023-09-16 16:38] LABS: Glucose,Whole Blood 159 mg/dL (70-110)
[2023-09-16] MEDS: metFORMIN 500 MG TAB PO SCH (17:18)
[2023-09-16] MEDS: ATORVASTATIN 20 MG TAB PO SCH (17:18)
[2023-09-16] MEDS: ACETAMINOPHEN TAB 325 MG TAB PO PRN (18:36)
[2023-09-16 20:13] LABS: Glucose,Whole Blood 121 mg/dL (70-110)
[2023-09-17 05:22] VITALS: BP 144/80; RESP 16
[2023-09-17] MEDS: INSULIN ASPART (NovoLOG) 100 UNIT/ML VIAL SQ SCH (05:55)
[2023-09-17 06:27] LABS: Glucose,Whole Blood 113 mg/dL (70-110)
[2023-09-17 06:58] LABS: HCT 34.8 % (34.0-46.0); HGB 11.4 gm/dL (11.4-16.0); MCH 31.1 pg (25.0-35.0); MCHC 32.7 g/dL (31.0-37.0); MCV 95.2 fL (80.0-100.0); Platelet Count 236 k/uL (150-450); RBC 3.66 m/uL (3.80-5.40); RDW 12.2 % (11.5-15.5); WBC 8.5 k/uL (3.8-10.6)
[2023-09-17 07:38] LABS: African American GFR (CKD) >90 (>60 ml/min/1.73 sqM); Anion Gap 12 mmol/L; Blood Urea Nitrogen 15 mg/dL (7-17); Calcium 9.3 mg/dL (8.4-10.2); Carbon Dioxide 23 mmol/L (22-30); Chloride 99 mmol/L (98-107); Glucose 107 mg/dL (74-99); Non-African American GFR(CKD) 89 (>60 ml/min/1.73 sqM); Potassium 4.7 mmol/L (3.5-5.1); Sodium 134 mmol/L (137-145)
[2023-09-17] MEDS ORDERED: SENNOSIDES-DOCUSATE SODIUM 1 EACH TAB PO PRN (07:48)
--- NOTE | 2023-09-17 07:52 | P.PN ---
Subjective Progress Note Date: 09/17/23 Principal diagnosis: Well-differentiated neuroendocrine tumor right middle lobe. History of hypertension, hyperlipidemia, diabetes, remote history of DVT not currently on anticoagulation, varicose veins, Mnire's disease, and lifelong nonsmoker POD #4 robotic assisted thoracoscopic right middle lobectomy with mediastinal lymph node sampling The patient was seen and examined this morning sitting up in bed in no acute distress about to eat breakfast. States pain is better controlled, denies shortness of breath. Remains in sinus rhythm, hemodynamically stable, currently on room air with oxygen saturation in the high 90s. Able to achieve 1000 mL on her incentive spirometry. Right pleural chest tube discontinued yesterday. Chest x-ray reviewed. Anticipate discharge to home today. No new concerns. Objective - Vital Signs Vital signs: Vital Signs Temp 97.8 F 09/17/23 04:00 Pulse 87 09/17/23 04:00 Resp 16 09/17/23 04:00 BP 144/80 09/17/23 04:00 Pulse Ox 95 09/17/23 04:00 FiO2 Intake & Output 09/16/23 09/17/23 09/17/23 18:59 06:59 18:59 Intake Total 480 240 Output Total 25 Balance 455 240 Weight 58.3 kg Intake: Oral 480 240 Output: Chest Tube Drainage 25 Chest Tube Right 25 Other: Voiding Method Toilet Toilet # Voids 1 - Exam CONSTITUTIONAL: Appears comfortable, cooperative, no acute distress RESPIRATORY: Lungs sounds clear bilaterally. Respirations even, nonlabored. Currently on room air with oxygen saturation 95%. Able to achieve 1000 mL on incentive spirometry. Strong cough. CARDIOVASCULAR: S1, S2 present. Regular rate and rhythm, sinus rhythm on telemetry. Palpable peripheral pulses bilaterally. No edema present. No calf pain or tenderness noted. SCDs present. GASTROINTESTINAL: Abdomen soft, nontender, nondistended. Active bowel sounds present 4 quadrants. Tolerating diet. Positive bowel movement GENITOURINARY: Continues to void INTEGUMENTARY: Skin is warm and dry, left forearm ecchymotic due to blood pressure cuff/lab draws/attempted IV and arterial line placement NEUROLOGIC: Cranial nerves II through XII intact MUSKULOSKELETAL: Able to move all extremities, strength equal bilaterally, gait normal PSYCHIATRIC: Alert and oriented to person place and time, appropriate affect, intact judgment and insight - Allied health notes Allied health notes reviewed: nursing - Labs CBC & Chem 7: 09/17/23 06:25 09/17/23 06:25 Labs: Abnormal Lab Results - Last 24 Hours (Table) 09/16/23 09/16/23 09/16/23 Range/Units 11:48 11:48 16:37 RBC 3.47 L (3.80-5.40) m/uL Hgb 10.8 L (11.4-16.0) gm/dL Hct 33.1 L (34.0-46.0) % Sodium 131 L (137-145) mmol/L Carbon Dioxide 21 L (22-30) mmol/L Creatinine 0.45 L (0.52-1.04) mg/dL Glucose (74-99) mg/dL POC Glucose (mg/dL) 159 H (70-110) mg/dL 09/16/23 09/17/23 09/17/23 Range/Units 20:12 06:25 06:25 RBC 3.66 L (3.80-5.40) m/uL Hgb (11.4-16.0) gm/dL Hct (34.0-46.0) % Sodium 134 L (137-145) mmol/L Carbon Dioxide (22-30) mmol/L Creatinine (0.52-1.04) mg/dL Glucose 107 H (74-99) mg/dL POC Glucose (mg/dL) 121 H (70-110) mg/dL 09/17/23 Range/Units 06:25 RBC (3.80-5.40) m/uL Hgb (11.4-16.0) gm/dL Hct (34.0-46.0) % Sodium (137-145) mmol/L Carbon Dioxide (22-30) mmol/L Creatinine (0.52-1.04) mg/dL Glucose (74-99) mg/dL POC Glucose (mg/dL) 113 H (70-110) mg/dL - Imaging and Cardiology Chest x-ray: image reviewed Assessment and Plan Assessment: Well-differentiated neuroendocrine tumor right middle lobe, status post robotic assisted thoracoscopic right middle lobectomy with mediastinal lymph node sampling History of hypertension History of hyperlipidemia Diabetes Remote history of DVT not currently on anticoagulation Varicose veins Mnire's disease Lifelong nonsmoker Plan: Continue current medication regimen Continue current pain medication regimen Will monitor daily labs and x-rays. Pathology pending Increase activity as tolerated Encourage incentive spirometry use Bronchodilators per pulmonology We'll discharge to home with follow-up appointments today
[2023-09-17] MEDS: IPRATROPIUM-ALBUTEROL 3 ML NEB IH SCH (08:52)
[2023-09-17] MEDS: ASPIRIN 81 MG PO SCH (08:53)
[2023-09-17] MEDS: lisinopriL 10 MG TAB PO SCH (08:53)
[2023-09-17] MEDS: ASCORBIC ACID 500 MG TAB PO SCH (08:53)
[2023-09-17] MEDS: KETOROLAC 15 MG/ML 1 ML VIAL IVP SCH (08:54)
[2023-09-17] MEDS: HEPARIN SODIUM,PORCINE 5,000 UNIT/ML 1 ML VIAL SQ SCH (08:54)
--- NOTE | 2023-09-17 08:54 | XR ---
EXAMINATION TYPE: XR chest 2V DATE OF EXAM: 09/17/2023 COMPARISON: 09/16/2023 TECHNIQUE: PA and lateral views submitted. HISTORY: Shortness of breath FINDINGS: Bilateral consolidation small effusion. There is subcutaneous air. Small air-fluid level in the right midlung could represent loculated hydropneumothorax. Apical pleural pneumothorax also seen measuring approximately 5-10%. Heart size stable. Osseous structures are stable IMPRESSION: 1. Bilateral consolidation and small effusion stable. Suspected pneumothorax with an area of loculate d pneumothorax as discussed above.
[2023-09-17] MEDS: MULTIVITAMINS, THERA 1 EACH TAB PO SCH (09:00)
[2023-09-17] MEDS: CHOLECALCIFEROL 25 MCG (1000 IU) TABLET PO SCH (09:00)
[2023-09-17 09:17] VITALS: PULSE 96; TEMP 99.5
--- NOTE | 2023-09-17 10:22 | P.PN ---
Subjective Progress Note Date: 09/17/23 78-year-old female who underwent a robotically assisted thoracoscopic right middle lobectomy with mediastinal lymph node sampling. The patient was recently seen by my partner, and had a lung biopsy, revealing a neuroendocrine tumor involving the right middle lobe. The patient was sent to Dr. Youngblood for further evaluation, and the patient underwent a right middle lobectomy, and had sampling of various lymph node stations including 4R, station 7, 8R, 9R, 10R, 11R, and 12R. The patient is postop day #0. She is resting comfortably in room 361. The patient is on 2 L of oxygen. She is receiving lactated Ringer's at 50 mL an hour. She has a right-sided chest tube, with a leak. The only current laboratory data is a glucose of 93. Chest x-ray shows a small 5% right apical pneumothorax. Progress note dated 09/14/2023. 78-year-old female seen yesterday in consultation. She is postop day #1, status post robotically assisted thoracoscopic right middle lobectomy with mediastinal lymph node sampling. The patient is currently on room air. The patient is not receiving any IV fluids. She does have a small leak from the chest tube. Currently, she's feeling better today than she did yesterday. She still has pain with deep breathing. Labs today include a white count 8.5, hemoglobin 11.5 , hematocrit 35.1, and platelet count of 214,000. Sodium 1:30, potassium 4.4, chlorides A6, CO2 24, BUN 16, creatinine 0.77. Glucose 126. Calcium is 9. Chest x-ray today shows right thoracotomy tube with small right pneumothorax. Progress note dated 09/15/2023. 78-year-old female seen in room 361. The patient is postoperative day #2, status post robotically assisted thoracoscopic right middle lobectomy with mediastinal lymph node sampling. The patient's currently on room air. The patient is not receiving any IV fluids. She does have a leak from the right chest tube. Clinically, she's feeling much better. She does have some pain deep breathing, and coughing. In addition, her cough sounds a bit wet. Glucose today is 111. Chest x-ray shows a persistent small right apical pneumothorax. Right chest tube remains. Progress note dated 09/16/2023. 78-year-old female seen in room 361. The patient is postoperative day #3, status post robotically assisted thoracoscopic right middle lobectomy with mediastinal lymph node sampling. The patient's currently on room air. The right chest tube is still in place. The patient is not requiring any supplemental oxygen, or IV fluids. She has no leak from that chest tube. No new labs today. Chest x-ray does not reveal a significant pneumothorax. There is some subcutaneous emphysema. On today's evaluation of 09/17/2023, extremely well. No specific complaints. She is currently on room air oxygen. The chest x-ray shows a tiny right apical pneumothorax and some atelectatic change in the right lung base. Otherwise, the patient is doing well. The surgical wound is dry clean and intact. No nausea. No vomiting. No emesis pH is ambulating. She is using the incentive spirometer. She is postop day #4.Labs from today shows edematous count of 8.5, hemoglobin of 11.4 and a platelet of 236. BUN is at 50 with a creatinine of 0.5 and a sodium level is at 134. Objective - Vital Signs Vital signs: Vital Signs Temp 99.5 F 09/17/23 08:00 Pulse 96 09/17/23 09:02 Resp 16 09/17/23 08:00 BP 144/80 09/17/23 04:00 Pulse Ox 96 09/17/23 08:57 FiO2 Intake & Output 09/16/23 09/17/23 09/17/23 18:59 06:59 18:59 Intake Total 480 240 180 Output Total 25 Balance 455 240 180 Weight 58.3 kg Intake: Oral 480 240 180 Output: Chest Tube Drainage 25 Chest Tube Right 25 Other: Voiding Method Toilet Toilet # Voids 1 1 - Exam CONSTITUTIONAL: Appears comfortable, cooperative, no acute distress RESPIRATORY: Lungs sounds clear bilaterally. Respirations even, nonlabored. Currently on room air with oxygen saturation 95%. Able to achieve 1000 mL on incentive spirometry. Strong cough. CARDIOVASCULAR: S1, S2 present. Regular rate and rhythm, sinus rhythm on telemetry. Palpable peripheral pulses bilaterally. No edema present. No calf pain or tenderness noted. SCDs present. GASTROINTESTINAL: Abdomen soft, nontender, nondistended. Active bowel sounds present 4 quadrants. Tolerating diet. Positive bowel movement GENITOURINARY: Continues to void INTEGUMENTARY: Skin is warm and dry, left forearm ecchymotic due to blood pre ssure cuff/lab draws/attempted IV and arterial line placement NEUROLOGIC: Cranial nerves II through XII intact MUSKULOSKELETAL: Able to move all extremities, strength equal bilaterally, gait normal PSYCHIATRIC: Alert and oriented to person place and time, appropriate affect, intact judgment and insight - Labs CBC & Chem 7: 09/17/23 06:25 09/17/23 06:25 Labs: Abnormal Lab Results - Last 24 Hours (Table) 09/16/23 09/16/23 09/16/23 Range/Units 11:48 11:48 16:37 RBC 3.47 L (3.80-5.40) m/uL Hgb 10.8 L (11.4-16.0) gm/dL Hct 33.1 L (34.0-46.0) % Sodium 131 L (137-145) mmol/L Carbon Dioxide 21 L (22-30) mmol/L Creatinine 0.45 L (0.52-1.04) mg/dL Glucose (74-99) mg/dL POC Glucose (mg/dL) 159 H (70-110) mg/dL 09/16/23 09/17/23 09/17/23 Range/Units 20:12 06:25 06:25 RBC 3.66 L (3.80-5.40) m/uL Hgb (11.4-16.0) gm/dL Hct (34.0-46.0) % Sodium 134 L (137-145) mmol/L Carbon Dioxide (22-30) mmol/L Creatinine (0.52-1.04) mg/dL Glucose 107 H (74-99) mg/dL POC Glucose (mg/dL) 121 H (70-110) mg/dL 09/17/23 Range/Units 06:25 RBC (3.80-5.40) m/uL Hgb (11.4-16.0) gm/dL Hct (34.0-46.0) % Sodium (137-145) mmol/L Carbon Dioxide (22-30) mmol/L Creatinine (0.52-1.04) mg/dL Glucose (74-99) mg/dL POC Glucose (mg/dL) 113 H (70-110) mg/dL Assessment and Plan Plan: Postop day #4, status post robotically-assisted right middle lobectomy and mediastinal lymph node dissection. The patient has a prior diagnosis by robotic bronchoscopy, of well-differentiated neuroendocrine tumor. EBUS evaluation was negative. History of diabetes mellitus. History of hyperlipidemia. History of hypertension. Plan: The patient has a tiny right apical pneumothorax. Asymptomatic. Doing well. Ambulating. No respiratory difficulties. The patient will likely get discharged home to be followed up on outpatient basis. She'll continue using the senna spirometer. Awaiting final surgical recommendations. Possible discharge home today.
--- NOTE | 2023-09-17 12:25 | P.DS ---
Providers Date of admission: 09/13/23 05:35 Expected date of discharge: 09/17/23 Attending physician: Rubio Youngblood Consults: 09/13/23 13:22 Consult Physician Routine Consulting Provider: Cosmo Shankar Reason/Comments: post lobectomy; leo patient Do you want consulting provider notified?: Yes Primary care physician: Fela Macario Hospital Course: FINAL DIAGNOSIS: 1. Well-differentiated neuroendocrine tumor right middle lobe 2. History of hypertension 3. History of hyperlipidemia 4. Diabetes mellitus 5. Remote history of DVT, not currently on anticoagulation 6. Varicose veins 7. Mnire's disease 8. Lifelong nonsmoker PRINCIPAL PROCEDURE: 1. Robotic-assisted thoracoscopic right middle lobectomy with mediastinal lymph node sampling HISTORY OF PRESENT ILLNESS: This is a 78-year-old female patient who follows with Dr. Macario for primary care and Dr. Sosa for pulmonology. She was found to have a lung mass during a screening CT, which was a discrete 2.5 cm mass in the right middle lobe fairly central. Biopsy had revealed well-differentiated neuroendocrine tumor. PET scan revealed uptake in the primary tumor with no jennifer dence of metastasis. There was no lymphadenopathy on CT and EBUS was negative for metastasis as well, consistent with clinically stage I well-differentiated neuroendocrine tumor. The patient was referred to Dr. Youngblood from cardiothoracic surgery for consideration for resection. She was recommended to undergo robotic-assisted right middle lobectomy with mediastinal lymph node sampling. The usual perioperative course was discussed in detail with the patient and her family, all risks and benefits were explained, all questions were answered, and consent was obtained to proceed with surgery. The patient was counseled for surgery at the earliest possible date. HOSPITAL COURSE: The patient was brought to the hospital on 09/13/23, taken to the preoperative area, prepared in the usual fashion, and subsequently taken to the operating room where Dr. Youngblood performed a robotic-assisted thoracoscopic right middle lobectomy. Upon completion of surgery the patient was extubated and taken to the recovery room for further hemodynamic monitoring. She was eventually admitted to 3 S. cardiac stepdown unit for further monitoring and rehabilitation. Her chest tube was placed to waterseal on postoperative day #2, removed on postoperative day #3, and follow-up chest x-ray was stable. Her oxygen was titrated down, she was tolerating oral diet, her pain was controlled, and she was ready to be discharged to home on postoperative day #4. She received written and verbal instruction regarding her medications, activity restrictions, signs and symptoms requiring physician notification, and follow-up appointments. Patient Condition at Discharge: Stable Plan - Discharge Summary Discharge Rx Participant: No New Discharge Prescriptions: New Sennosides-Docusate Sodium [Senokot-S] 2 each PO DAILY PRN tab PRN Reason: Constipation Acetaminophen Tab [Tylenol] 650 mg PO Q4HR PRN tab PRN Reason: Mild To Moderate Pain (1 - 6) traMADol HCl [Ultram] 50 mg PO QID PRN #12 tab PRN Reason: Breakthrough Pain Continue Perindopril Erbumine [Aceon] 4 mg PO HS Multivit with Calcium,Iron,Min [Women's Multivitamin] 1 each PO DAILY Aspirin [Adult Low Dose Aspirin EC] 81 mg PO DAILY Ascorbic Acid [Vitamin C] 1,000 mg PO DAILY metFORMIN HCL [Glucophage] 500 mg PO W/SUPPER Rosuvastatin [Crestor] 10 mg PO W/SUPPER Cholecalciferol [Vitamin D3 (25 Mcg = 1000 Iu)] 25 mcg PO DAILY Cinnamon Bark [Cinnamon] 500 mg PO DAILY Discharge Medication List Ascorbic Acid [Vitamin C] 1,000 mg PO DAILY 04/05/18 [History] Aspirin [Adult Low Dose Aspirin EC] 81 mg PO DAILY 04/05/18 [History] Multivit with Calcium,Iron,Min [Women's Multivitamin] 1 each PO DAILY 04/05/18 [History] Perindopril Erbumine [Aceon] 4 mg PO HS 04/05/18 [History] Rosuvastatin [Crestor] 10 mg PO W/SUPPER 08/14/23 [History] metFORMIN HCL [Glucophage] 500 mg PO W/SUPPER 08/14/23 [History] Cholecalciferol [Vitamin D3 (25 Mcg = 1000 Iu)] 25 mcg PO DAILY 09/10/23 [History] Cinnamon Bark [Cinnamon] 500 mg PO DAILY 09/10/23 [History] Acetaminophen Tab [Tylenol] 650 mg PO Q4HR PRN tab 09/17/23 [Rx] Sennosides-Docusate Sodium [Senokot-S] 2 each PO DAILY PRN tab 09/17/23 [Rx] traMADol HCl [Ultram] 50 mg PO QID PRN #12 tab 09/17/23 [Rx] Follow up Appointment(s)/Referral(s): Fela Macario MD [Primary Care Provider] - As Needed Rubio Youngblood MD [STAFF PHYSICIAN] - 09/20/23 2:00 pm Arabella Sosa MD [STAFF PHYSICIAN] - 10/02/23 10:00 am Patient Instructions/Handouts: Lung Lobectomy (DC) Activity/Diet/Wound Care/Special Instructions: DISCHARGE INSTRUCTIONS: 1. No driving for 1 week, or until physician gives their ok. 2. No lifting, pushing, or pulling more than 10 pounds for 1 weeks. The physician will advise of any restriction changes. 3. Continue pain control per as needed orders. Alternate acetaminophen (Tylenol) and ibuprofen (Motrin/Advil) for pain. 4. Continue with incentive spirometry and splinting until otherwise directed by the physician. 5. Leave chest tube dressing for 48 hours. After that, remove all dressings and shower daily. 6. Routine incision care. No powders, lotions, ointments on incisions. 7. Please call surgeon/CLINICAL MICROBIOLOGIST for temp greater than 101 F or purulent drainage from incisions. Discharge Disposition: HOME SELF-CARE
== END 2023-09-17 11:06 | disposition home or self-care (01) | DRG 827 ==
LOC: 2ORMAIN 05:35 → 3SCARD 14:00
PROVIDERS: ADMIT Thoracic Surgery (Cardiothoracic Vascular Surgery); ATTEND Thoracic Surgery (Cardiothoracic Vascular Surgery)
PROC: 0BTD4ZZ Resection of Right Middle Lung Lobe, Percutaneous Endoscopic Approach (ICD-10-PCS; principal; 2023-09-13 07:30)
PROC: 07T74ZZ Resection of Thorax Lymphatic, Percutaneous Endoscopic Approach (ICD-10-PCS; principal; 2023-09-13 07:30)
PROC: 8E0W4CZ Robotic Assisted Procedure of Trunk Region, Percutaneous Endoscopic Approach (ICD-10-PCS; principal; 2023-09-13 07:30)
DX: C7A.8 Other malignant neuroendocrine tumors (principal); J93.82 Other air leak; E11.9 Type 2 diabetes mellitus without complications; E78.5 Hyperlipidemia, unspecified; I10 Essential (primary) hypertension; I83.90 Asymptomatic varicose veins of unspecified lower extremity; H91.90 Unspecified hearing loss, unspecified ear; H81.09 Meniere's disease, unspecified ear; Z86.718 Personal history of other venous thrombosis and embolism; Z79.82 Long term (current) use of aspirin; Z79.84 Long term (current) use of oral hypoglycemic drugs; Z79.899 Other long term (current) drug therapy; Z88.2 Allergy status to sulfonamides
CPT/HCPCS: 64999; 71045; 71046; 80048; 85025; 85027; 88305; 88307; 88309; 88331; 88341; 88342; 94640; 94760

== ENCOUNTER → 2024-03-28 | Outpatient (CLI) | payer MEDICARE ==
[2024-03-28 11:50] LABS: African American GFR (CKD) >90 (>60 ml/min/1.73 sqM); Blood Urea Nitrogen 19 mg/dL (7-17); Non-African American GFR(CKD) 85 (>60 ml/min/1.73 sqM)
--- NOTE | 2024-03-28 12:45 | CT ---
EXAMINATION TYPE: CT chest w con DATE OF EXAM: 03/28/2024 COMPARISON: 08/16/2023 HISTORY: Lung cancer follow-up TECHNIQUE: Multiple axial images were obtained through the thorax following the uneventful administration of non ionic IV contrast material. FINDINGS: The right middle lobe lung mass has resolved in the interval. There is mild thickening the minor fiss ure. There is no suspicious lung mass or nodule. There is no airspace/consolidated density or abnormal interstitial density. There is no pleural effusion, pleural thickening or pneumothorax. The great vessels the chest are normal with no mediastinal, hilar or axillary adenopathy. There is again to the upper abdomen reveals stable mild thickening of the left adrenal gland No focal osseous lesions are seen. IMPRESSION: 1. Resolution of the right middle lobe mass. No new lung mass or nodule. 2. No acute cardiopulmonary disease. 3. Stable mild thickening of the left adrenal gland
== END | disposition home or self-care (01) ==
LOC: RADCTMAIN 10:57
PROVIDERS: ATTEND Internal Medicine Critical Care Medicine
DX: C34.90 Malignant neoplasm of unspecified part of unspecified bronchus or lung (principal); E27.9 Disorder of adrenal gland, unspecified
CPT/HCPCS: 82565; 84520; 71260; 36415; Q9967

== ENCOUNTER → 2024-09-19 | Outpatient (CLI) | payer MEDICARE ==
[2024-09-19 15:07] LABS: African American GFR (CKD) >90 (>60 ml/min/1.73 sqM); Blood Urea Nitrogen 21 mg/dL (7-17); Non-African American GFR(CKD) 82 (>60 ml/min/1.73 sqM)
--- NOTE | 2024-09-19 20:14 | CT ---
EXAMINATION TYPE: CT chest w con DATE OF EXAM: 09/19/2024 4:31 PM COMPARISON: 03/28/2024 CLINICAL INDICATION: Female, 79 years old with history of C34.90 MALIGNANT NEOPLASM OF UNSP PART OF U NSP BRO, lung ca TECHNIQUE: Multiple axial images were obtained through the chest. Sagittal and coronal reformats were created for review. MIP was performed on a separate workstation. Contrast used:100ml mL of Isovue 300 with IV Contrast (None if empty) Oral contrast used: (None if empty) CT DLP: 140.6 mGycm, Automated exposure control for dose reduction was used. FINDINGS: LUNGS/ PLEURA: Postsurgical changes right lung without evidence for nodular thickening or recurrence. No lymphadenopathy. No focal consolidation, pneumothorax or pleural effusion. AIRWAY: Patent and unremarkable. HEART: Size within normal limits. MEDIASTINUM: No gross evidence of adenopathy. VASCULATURE: No aortic aneurysm. MUSCULOSKELETAL: Mild disc degeneration changes are present throughout the thoracolumbar spine. SOFT TISSUES/LYMPH NODES: Unremarkable. LOWER NECK: No significant findings. UPPER ABDOMEN: No significant findings. IMPRESSION: Postsurgical changes without evidence for recurrence. No lymphadenopathy. [facility], , 09/19/2024 8:11 PM
== END | disposition home or self-care (01) ==
LOC: RADCTMAIN 14:24
PROVIDERS: ATTEND Internal Medicine Critical Care Medicine
DX: C34.90 Malignant neoplasm of unspecified part of unspecified bronchus or lung (principal); Z98.890 Other specified postprocedural states
CPT/HCPCS: 82565; 84520; 71260; 36415; Q9967

== ENCOUNTER → 2025-03-27 | Outpatient (CLI) | payer MEDICARE ==
[2025-03-27 12:48] LABS: African American GFR (CKD) >90 (>60 ml/min/1.73 sqM); Blood Urea Nitrogen 20 mg/dL (7-17); Non-African American GFR(CKD) 78 (>60 ml/min/1.73 sqM)
--- NOTE | 2025-03-27 13:43 | CT ---
CT thorax with contrast HISTORY: Lung cancer, progression study. COMPARISON: 09/19/2024. TECHNIQUE: Multiple axial images were obtained of thorax following IV contrast material. FINDINGS: There are postsurgical changes of right middle lobe lobectomy. There is no new lung mass or nodule. There is a stable micronodule in the left upper lobe. There is no airspace consolidation There is no pleural effusion or pneumothorax. The great vessels chest are normal with no mediastinal, hilar or axillary adenopathy. Limited scanning through the upper abdomen reveals stable left adrenal nodularity There are no focal osseous lesions. IMPRESSION: 1.Status post right middle lobe resection for lung cancer. 2 no evidence of recurrent or metastatic disease. [facility], Workstation: ABEL 03/27/2025 1:41 PM
== END | disposition home or self-care (01) ==
LOC: RADCTMAIN 12:01
PROVIDERS: ATTEND Internal Medicine Critical Care Medicine
DX: C34.90 Malignant neoplasm of unspecified part of unspecified bronchus or lung (principal); Z98.890 Other specified postprocedural states
CPT/HCPCS: 82565; 84520; 71260; 36415; Q9967